=== PATIENT | male | born 1985 | race African-American/Black ===

== ENCOUNTER → 2016-07-25 | Outpatient (CLI) | payer MEDICAID, SELFPAY ==
[~2016-07-25] MED LIST: KEPP1TAB PO; KEPP1TAB2 PO; TOPI25TA2 OR
== END ==
LOC: M OUTALCOH 13:21
PROVIDERS: ATTEND Psychiatry & Neurology Psychiatry
DX: Z13.9 Encounter for screening, unspecified (principal); F10.20 Alcohol dependence, uncomplicated

== ENCOUNTER 2016-10-12 12:28 | Emergency (ER) | payer MEDICAID, OTHER ==
[~2016-10-12] VITALS: Ht 167.6 cm; Wt 68.2 kg
[~2016-10-12 12:28] MED LIST changes: -KEPP1TAB PO
[2016-10-12] MEDS ORDERED: OXAZEPAM 15 MG CAP PO ONE (13:00)
[2016-10-12 13:30] LABS: BASO # 0.1 K/mm3 (0.0-0.2); BASO % 0.6 % (0.0-1.0); EOS # 0.1 K/mm3 (0.0-0.50); EOS % 0.6 % (0.0-3.0); LARGE UNSTAINED CELL # 0.1 K/mm3 (0.0-0.4); LARGE UNSTAINED CELL % 1.3 % (0.0-4.0); LYMPH # 1.3 K/mm3 (1.5-6.5); LYMPH % 11.2 % (24.0-44.0); MEAN CORPUSCULAR HEMOGLOBIN 30.8 pg (27.0-33.0); MEAN CORPUSCULAR VOLUME 93.3 fl (80.0-96.0); MONO # 0.5 K/mm3 (0.0-0.8); MONO % 4.7 % (0.0-5.0); NEUTROPHILS # 8.6 K/mm3 (1.8-7.7); NEUTROPHILS % 81.7 % (36.0-66.0); PLATELET COUNT, AUTOMATED 245 k/mm3 (150-450); RED CELL DISTRIBUTION WIDTH 13.5 % (11.5-14.5); WHITE BLOOD COUNT 10.6 K/mm3 (4.0-10.0)
[2016-10-12] MEDS ORDERED: NS 1,000 ML IV ONE (13:30)
[2016-10-12 13:49] LABS: ALBUMIN 4.3 GM/DL (3.2-5.2); ALBUMIN/GLOBULIN RATIO 1.08 (1.00-1.93); ALKALINE PHOSPHATASE 87 U/L (45-117); ALT/SGPT 26 U/L (12-78); ANION GAP 17 MEQ/L (8-16); AST/SGOT 15 U/L (15-37); BILIRUBIN,DIRECT 0.1 MG/DL (0.0-0.2); BILIRUBIN,TOTAL 0.5 MG/DL (0.2-1.0); BLOOD UREA NITROGEN 13 MG/DL (7-18); CALCIUM LEVEL 9.7 MG/DL (8.5-10.1); CARBON DIOXIDE LEVEL 20 MEQ/L (21-32); CHLORIDE LEVEL 102 MEQ/L (98-107); CREATININE FOR GFR 1.61 MG/DL (0.70-1.30); GLOMERULAR FILTRATION RATE > 60.0 (>60); GLUCOSE, FASTING 81 MG/DL (70-105); POTASSIUM SERUM 4.4 MEQ/L (3.5-5.1); SODIUM LEVEL 139 MEQ/L (136-145); TOTAL PROTEIN 8.3 GM/DL (6.4-8.2)
[2016-10-12] MEDS ORDERED: levETIRAcetam INJection 500 MG in D5W MINI-BAG PLUS 100 ML IV ONE (14:15)
[2016-10-12 16:19] LABS: METHADONE URINE NEGATIVE (NEGATIVE)
[2016-10-12] MEDS ORDERED: KEPP1TAB PO (17:13)
[2016-10-12 18:19] VITALS: BP 128/92
--- NOTE | 2016-10-13 19:10 | ECGEPIP ---
Stationary ECG Study [facility] - ED Test Date: 2016-10-12 Pat Name: CORAL BALES Department: Room: - Gender: M Skin Care Specialist: rn : 1985 Requested By: Octavio Castillo Order Number: [id number] Reading MD: Reddy Brush Measurements Intervals [place] Rate: 147 P: WA: 0 QRS: 42 QRSD: 80 T: 17 QT: 264 QTc: 413 Interpretive Statements PROBABLE SINUS TACHYCARDIA ABNORMAL RHYTHM ECG NONSPECIFIC ST T WAVE CHANGES 01/02/16 - RATE INCREASED Electronically Signed On 10-13-2016 19:10:15 EDT by Reddy Brush
== END 2016-10-12 18:26 | disposition home or self-care (01) ==
LOC: M ED 12:28
DX: F10.20 Alcohol dependence, uncomplicated (principal); G40.909 Epilepsy, unspecified, not intractable, without status epilepticus; Z91.14 Patient's other noncompliance with medication regimen; R94.31 Abnormal electrocardiogram [ECG] [EKG]; Z87.820 Personal history of traumatic brain injury; F17.200 Nicotine dependence, unspecified, uncomplicated
CPT/HCPCS: 80048; 80076; 80307; 80320; 85025; 93000; 96374; 99284; J1953

== ENCOUNTER 2017-02-05 04:39 | Emergency (ER) | payer OTHER ==
[2017-02-05 07:39] LABS: BASO % 0.3 % (0.0-1.0); EOS % 0.1 % (0.0-3.0); IMMATURE GRANULOCYTE % 0.3 % (0-0); LYMPH # 1.1 10^3/uL (1.5-6.5); LYMPH % 7.3 % (24.0-44.0); MEAN CORPUSCULAR HEMOGLOBIN 30.2 pg (27.0-33.0); MEAN CORPUSCULAR HGB CONC 33.8 g/dl (32.0-36.5); MEAN CORPUSCULAR VOLUME 89.3 fl (80.0-96.0); MONO # 1.4 10^3/uL (0.0-0.8); MONO % 9.2 % (0.0-5.0); NEUTROPHILS # 12.4 10^3/uL (1.8-7.7); NEUTROPHILS % 82.8 % (36.0-66.0); PLATELET COUNT, AUTOMATED 242 10^3/uL (150-450); RED CELL DISTRIBUTION WIDTH 13.2 % (11.5-14.5)
[2017-02-05] MEDS: levETIRAcetam INJection 1,000 MG in D5W 100 ML IV (07:41)
[2017-02-05 08:09] LABS: ANION GAP 8 MEQ/L (8-16); BLOOD UREA NITROGEN 13 MG/DL (7-18); CALCIUM LEVEL 8.7 MG/DL (8.5-10.1); CARBON DIOXIDE LEVEL 27 MEQ/L (21-32); CHLORIDE LEVEL 107 MEQ/L (98-107); CREATININE FOR GFR 1.26 MG/DL (0.70-1.30); GLOMERULAR FILTRATION RATE > 60.0 (>60); GLUCOSE, FASTING 81 MG/DL (70-105); POTASSIUM SERUM 3.9 MEQ/L (3.5-5.1); SODIUM LEVEL 142 MEQ/L (136-145)
== END 2017-02-05 09:12 | disposition home or self-care (01) ==
LOC: M ED 04:39
DX: R56.9 Unspecified convulsions (principal); F17.210 Nicotine dependence, cigarettes, uncomplicated; Z91.14 Patient's other noncompliance with medication regimen; Z87.820 Personal history of traumatic brain injury; Z96.9 Presence of functional implant, unspecified
CPT/HCPCS: J1953

== ENCOUNTER 2017-06-14 11:06 | Emergency (ER) | payer OTHER ==
[2017-06-14] MEDS: NS 1,000 ML IV ×2 (11:27→13:41)
[2017-06-14 11:34] LABS: BASO % 0.4 % (0.0-1.0); EOS % 0.3 % (0.0-3.0); HEMATOCRIT 41.8 % (42.0-52.0); HEMOGLOBIN 13.8 g/dl (13.5-17.5); IMMATURE GRANULOCYTE % 0.4 % (0-3.0); LYMPH % 10.4 % (24.0-44.0); MEAN CORPUSCULAR HEMOGLOBIN 30.3 pg (27.0-33.0); MEAN CORPUSCULAR VOLUME 91.9 fl (80.0-96.0); MONO # 0.5 10^3/uL (0.0-0.8); MONO % 5.3 % (0.0-5.0); NEUTROPHILS # 7.8 10^3/uL (1.8-7.7); NEUTROPHILS % 83.2 % (36.0-66.0); PLATELET COUNT, AUTOMATED 220 10^3/uL (150-450); RED BLOOD COUNT 4.55 10^6/uL (4.30-6.10); RED CELL DISTRIBUTION WIDTH 14.6 % (11.5-14.5); WHITE BLOOD COUNT 9.4 10^3/uL (4.0-10.0)
[2017-06-14 11:59] LABS: ALBUMIN/GLOBULIN RATIO 0.95 (1.00-1.93); ALKALINE PHOSPHATASE 89 U/L (45-117); ALT/SGPT 30 U/L (12-78); ANION GAP 15 MEQ/L (8-16); AST/SGOT 34 U/L (7-37); BILIRUBIN,DIRECT 0.1 MG/DL (0.0-0.2); BILIRUBIN,TOTAL 0.6 MG/DL (0.2-1.0); BLOOD UREA NITROGEN 11 MG/DL (7-18); CARBON DIOXIDE LEVEL 19 MEQ/L (21-32); CHLORIDE LEVEL 103 MEQ/L (98-107); CPK CREATINE PHOSPHOKINASE 404 U/L (39-308); ETHYL ALCOHOL (ETHANOL) 0.012 % (0.000-0.010); GLOMERULAR FILTRATION RATE > 60.0 (>60); GLUCOSE, FASTING 75 MG/DL (70-100); POTASSIUM SERUM 4.5 MEQ/L (3.5-5.1); SALICYLATE LEVEL < 1.7 MG/DL (5.0-30.0); SODIUM LEVEL 137 MEQ/L (136-145); TOTAL PROTEIN 8.2 GM/DL (6.4-8.2); TROPONIN I < 0.02 NG/ML (< 0.10)
[2017-06-14 12:05] LABS: CK-MB VALUE MASS 1.6 NG/ML (<3.6); MB/CK RELATIVE INDEX 0.39 (< OR =4); THYROID STIMULATING HORMONE 0.374 uIU/ML (0.358-3.740)
[2017-06-14 12:06] LABS: ACETAMINOPHEN LEVEL < 2.0 UG/ML (10.0-30.0)
[2017-06-14 12:13] LABS: LACTIC ACID SEPSIS PROTOCOL 3.9 MMOL/L (0.4-2.0)
[2017-06-14] MEDS: levETIRAcetam INJection 1,000 MG in D5W 100 ML IV (12:25)
[2017-06-14 13:23] LABS: LACTIC ACID SEPSIS PROTOCOL 2.8 MMOL/L (0.4-2.0)
[2017-06-14 14:40] LABS: AMPHETAMINES LEVEL URINE NEGATIVE (NEGATIVE); BARBITURATES URINE NEGATIVE (NEGATIVE); BENZODIAZEPINES URINE NEGATIVE (NEGATIVE); CANNABINOIDS URINE NEGATIVE (NEGATIVE); COCAINE METABOLITE URINE NEGATIVE (NEGATIVE); METHADONE URINE NEGATIVE (NEGATIVE); OPIATES URINE NEGATIVE (NEGATIVE); PHENCYCLIDINE URINE NEGATIVE (NEGATIVE)
[2017-06-14 17:40] LABS: BEDSIDE GLUCOSE 82 MG/DL (70-105)
== END 2017-06-14 15:36 | disposition home or self-care (01) ==
LOC: M ED 11:06
DX: R56.9 Unspecified convulsions (principal); R00.0 Tachycardia, unspecified; Z87.828 Personal history of other (healed) physical injury and trauma; F17.200 Nicotine dependence, unspecified, uncomplicated; Z79.899 Other long term (current) drug therapy
CPT/HCPCS: J1953

== ENCOUNTER 2017-07-09 07:33 | Emergency (ER) | payer OTHER ==
[2017-07-09 08:00] LABS: VENOUS BASE EXCESS -14.9 (-2.0-2.0); VENOUS HCO3 12.2 MEQ/L (23.0-27.0); VENOUS O2 SATURATION 84.2 % (60.0-80.0); VENOUS PARTIAL PRESSURE CO2 32.7 mmHg (38.0-50.0); VENOUS PARTIAL PRESSURE O2 59.8 mmHg (30.0-50.0); VENOUS PH 7.188 UNITS (7.330-7.430); VENOUS STANDARD HCO3 13.2 MEQ/L; VENOUS TOTAL CO2 13.2 MEQ/L (24.0-28.0)
[2017-07-09 08:01] LABS: BASO # 0.1 10^3/uL (0.0-0.2); BASO % 0.5 % (0.0-1.0); EOS # 0.1 10^3/uL (0.0-0.50); EOS % 0.5 % (0.0-3.0); HEMATOCRIT 43.8 % (42.0-52.0); HEMOGLOBIN 14.2 g/dl (13.5-17.5); IMMATURE GRANULOCYTE % 0.8 % (0-3.0); LYMPH # 1.8 10^3/uL (1.5-4.5); LYMPH % 13.9 % (24.0-44.0); MEAN CORPUSCULAR HEMOGLOBIN 31.2 pg (27.0-33.0); MEAN CORPUSCULAR HGB CONC 32.4 g/dl (32.0-36.5); MEAN CORPUSCULAR VOLUME 96.3 fl (80.0-96.0); MONO # 1.2 10^3/uL (0.0-0.8); MONO % 9.4 % (0.0-5.0); NEUTROPHILS # 9.9 10^3/uL (1.8-7.7); NEUTROPHILS % 74.9 % (36.0-66.0); PLATELET COUNT, AUTOMATED 233 10^3/uL (150-450); RED BLOOD COUNT 4.55 10^6/uL (4.30-6.10); RED CELL DISTRIBUTION WIDTH 14.4 % (11.5-14.5); WHITE BLOOD COUNT 13.2 10^3/uL (4.0-10.0)
[2017-07-09] MEDS: NS 1,000 ML IV ×2 (08:04→10:04)
[2017-07-09 08:10] LABS: BEDSIDE GLUCOSE 91 MG/DL (70-105)
[2017-07-09 08:33] LABS: AMPHETAMINES LEVEL URINE NEGATIVE (NEGATIVE); BARBITURATES URINE NEGATIVE (NEGATIVE); BENZODIAZEPINES URINE NEGATIVE (NEGATIVE); CANNABINOIDS URINE NEGATIVE (NEGATIVE); COCAINE METABOLITE URINE NEGATIVE (NEGATIVE); METHADONE URINE NEGATIVE (NEGATIVE); OPIATES URINE NEGATIVE (NEGATIVE); PHENCYCLIDINE URINE NEGATIVE (NEGATIVE)
[2017-07-09 08:34] LABS: ALBUMIN/GLOBULIN RATIO 0.89 (1.00-1.93); ALKALINE PHOSPHATASE 101 U/L (45-117); ALT/SGPT 38 U/L (12-78); ANION GAP 23 MEQ/L (8-16); AST/SGOT 24 U/L (7-37); BILIRUBIN,DIRECT 0.3 MG/DL (0.0-0.2); BILIRUBIN,TOTAL 0.8 MG/DL (0.2-1.0); BLOOD UREA NITROGEN 12 MG/DL (7-18); CALCIUM LEVEL 8.9 MG/DL (8.5-10.1); CARBON DIOXIDE LEVEL 13 MEQ/L (21-32); CHLORIDE LEVEL 96 MEQ/L (98-107); CREATININE FOR GFR 1.57 MG/DL (0.70-1.30); GLOMERULAR FILTRATION RATE > 60.0 (>60); GLUCOSE, FASTING 90 MG/DL (70-100); POTASSIUM SERUM 4.4 MEQ/L (3.5-5.1); SALICYLATE LEVEL < 1.7 MG/DL (5.0-30.0); SODIUM LEVEL 132 MEQ/L (136-145); THYROID STIMULATING HORMONE 0.309 uIU/ML (0.358-3.740); TOTAL PROTEIN 8.5 GM/DL (6.4-8.2)
[2017-07-09 08:35] LABS: ACETAMINOPHEN LEVEL < 2.0 UG/ML (10.0-30.0)
[2017-07-09 11:39] LABS: VENOUS BASE EXCESS -1.4 (-2.0-2.0); VENOUS HCO3 25.6 MEQ/L (23.0-27.0); VENOUS O2 SATURATION 67.6 % (60.0-80.0); VENOUS PARTIAL PRESSURE CO2 52.7 mmHg (38.0-50.0); VENOUS PARTIAL PRESSURE O2 37.9 mmHg (30.0-50.0); VENOUS PH 7.305 UNITS (7.330-7.430); VENOUS STANDARD HCO3 22.6 MEQ/L; VENOUS TOTAL CO2 27.3 MEQ/L (24.0-28.0)
[2017-07-09] MEDS: DIVALPROEX 500MG *ER* TAB PO (12:41)
== END 2017-07-09 12:43 | disposition home or self-care (01) ==
LOC: M ED 07:33
DX: R56.9 Unspecified convulsions (principal); Z91.19 Patient's noncompliance with other medical treatment and regimen; R00.0 Tachycardia, unspecified; R94.31 Abnormal electrocardiogram [ECG] [EKG]; Z87.820 Personal history of traumatic brain injury; Z79.899 Other long term (current) drug therapy
CPT/HCPCS: 70450

== ENCOUNTER 2018-02-24 11:17 | Emergency (ER) | payer MEDICAID, OTHER, SELFPAY ==
[~2018-02-24] VITALS: Ht 167.6 cm; Wt 71.8 kg
[~2018-02-24 11:17] MED LIST changes: +DEPA500T2 PO; +KEPP1TAB PO
[2018-02-24 11:47] LABS: BASO % 0.3 % (0.0-1.0); EOS % 0.1 % (0.0-3.0); HEMATOCRIT 43.3 % (42.0-52.0); HEMOGLOBIN 14.3 g/dl (13.5-17.5); LYMPH # 0.6 10^3/uL (1.5-4.5); LYMPH % 5.3 % (24.0-44.0); MEAN CORPUSCULAR HEMOGLOBIN 32.4 pg (27.0-33.0); MONO # 1.1 10^3/uL (0.0-0.8); MONO % 9.6 % (0.0-5.0); NEUTROPHILS # 9.5 10^3/uL (1.8-7.7); NEUTROPHILS % 84.3 % (36.0-66.0); PLATELET COUNT, AUTOMATED 189 10^3/uL (150-450); RED BLOOD COUNT 4.42 10^6/uL (4.30-6.10); WHITE BLOOD COUNT 11.2 10^3/uL (4.0-10.0)
--- NOTE | 2018-02-24 12:11 | REP ---
CT Head without contrast HISTORY: Trauma COMPARISON: 07/09/2017 An area of decreased attenuation is present in the right frontal lobe. There is dilatation of the overlying cortical sulci and anterior horn of the right lateral ventricle. This represents encephalomalacia. There is no intraparenchymal hemorrhage, acute infarct, mass or midline shift. There is no hydrocephalus or extracerebral collection. There is no fracture. The visualized sinuses are clear. IMPRESSION: Right frontal lobe encephalomalacia. Electronically Signed by Matt Grande MD 02/24/2018 12:03 P
[2018-02-24 12:33] LABS: ACETAMINOPHEN LEVEL < 2.0 UG/ML (10.0-30.0); ALBUMIN 4.3 GM/DL (3.2-5.2); ALT/SGPT 129 U/L (12-78); BILIRUBIN,DIRECT 0.3 MG/DL (0.0-0.2); BLOOD UREA NITROGEN 8 MG/DL (7-18); CALCIUM LEVEL 9.1 MG/DL (8.5-10.1); CARBON DIOXIDE LEVEL 11 MEQ/L (21-32); CHLORIDE LEVEL 100 MEQ/L (98-107); CPK CREATINE PHOSPHOKINASE 348 U/L (39-308); CREATININE FOR GFR 1.52 MG/DL (0.70-1.30); GLOMERULAR FILTRATION RATE > 60.0 (>60); GLUCOSE, FASTING 154 MG/DL (70-100); POTASSIUM SERUM 4.6 MEQ/L (3.5-5.1); SALICYLATE LEVEL < 1.7 MG/DL (5.0-30.0); SODIUM LEVEL 138 MEQ/L (136-145); THYROID STIMULATING HORMONE 0.532 uIU/ML (0.358-3.740); TOTAL PROTEIN 8.7 GM/DL (6.4-8.2); VALPROIC ACID (DEPAKOTE) 6.1 UG/ML (50.0-100.0)
[2018-02-24 12:34] LABS: ETHYL ALCOHOL (ETHANOL) < 0.003 % (0.000-0.010)
[2018-02-24] MEDS ORDERED: ADACEL/BOOSTRIX VACCINE (DIPHTH/PERTUSS/ACELL/TETANUS)0.5ML SYR (90715) IM ONE (13:00)
[2018-02-24] MEDS ORDERED: VALPROATE SOD INJ 1,000 MG in D5W 50 ML IV ONE (13:15)
[2018-02-24 14:47] VITALS: BP 142/82
[2018-02-24] MEDS ORDERED: KEPP1TAB PO (14:52)
[2018-02-24] MEDS ORDERED: DEPA500T2 PO (14:52)
--- NOTE | 2018-02-25 19:27 | ECGEPIP ---
Stationary ECG Study [facility] - ED Test Date: 2018-02-24 Pat Name: CORAL BALES Department: Room: - Gender: M Benefits Specialist Recruiter: TC : 1985 Requested By: Kat Mullins Order Number: [id number] Reading MD: Reddy Brush Measurements Intervals [place] Rate: 126 P: 55 VA: 150 QRS: 47 QRSD: 78 T: 34 QT: 293 QTc: 424 Interpretive Statements SINUS TACHYCARDIA ABNORMAL RHYTHM ECG NONSPECIFIC ST T WAVE CHANGES 07/08/[address] T WAVE CHANGES Electronically Signed On 02-25-2018 19:26:58 EST by Reddy Brush
== END 2018-02-24 15:05 | disposition home or self-care (01) ==
LOC: M ED 11:17
DX: G40.309 Generalized idiopathic epilepsy and epileptic syndromes, not intractable, without status epilepticus (principal)
CPT/HCPCS: 36415; 70450; 80048; 80076; 80164; 80180; 82550; 84443; 85025; 90715; 93005; 93041; 94760; 96365; 96366; 99285; G0480

== ENCOUNTER → 2018-03-21 | Outpatient (REF) | payer MEDICAID ==
[2018-03-21 16:55] LABS: BASO % 0.4 % (0.0-1.0); EOS # 0.1 10^3/uL (0.0-0.50); EOS % 0.9 % (0.0-3.0); HEMATOCRIT 41.1 % (42.0-52.0); HEMOGLOBIN 14.1 g/dl (13.5-17.5); LYMPH # 1.5 10^3/uL (1.5-4.5); LYMPH % 15.8 % (24.0-44.0); MEAN CORPUSCULAR HEMOGLOBIN 32.9 pg (27.0-33.0); MEAN CORPUSCULAR HGB CONC 34.3 g/dl (32.0-36.5); MONO % 10.2 % (0.0-5.0); NEUTROPHILS # 6.7 10^3/uL (1.8-7.7); NEUTROPHILS % 72.4 % (36.0-66.0); PLATELET COUNT, AUTOMATED 167 10^3/uL (150-450); RED BLOOD COUNT 4.28 10^6/uL (4.30-6.10); WHITE BLOOD COUNT 9.3 10^3/uL (4.0-10.0)
[2018-03-21 17:20] LABS: ALBUMIN 4.7 GM/DL (3.2-5.2); ALT/SGPT 80 U/L (12-78); BLOOD UREA NITROGEN 10 MG/DL (7-18); CALCIUM LEVEL 9.1 MG/DL (8.5-10.1); CARBON DIOXIDE LEVEL 24 MEQ/L (21-32); CHLORIDE LEVEL 98 MEQ/L (98-107); CREATININE FOR GFR 1.01 MG/DL (0.70-1.30); GLOMERULAR FILTRATION RATE > 60.0 (>60); GLUCOSE, FASTING 79 MG/DL (70-100); POTASSIUM SERUM 4.5 MEQ/L (3.5-5.1); SODIUM LEVEL 135 MEQ/L (136-145); TOTAL PROTEIN 8.7 GM/DL (6.4-8.2)
== END ==
LOC: M LAB REF 16:12
PROVIDERS: ATTEND Family Medicine Addiction Medicine
DX: R74.8 Abnormal levels of other serum enzymes (principal)

== ENCOUNTER → 2018-04-02 | Outpatient (CLI) | payer OTHER ==
--- NOTE | 2018-04-03 08:28 | REP ---
MR BRAIN WITHOUT CONTRAST: HISTORY: Seizure. COMPARISON: MR 02/01/[address] 02/24/2018 An area of increased signal intensity on T2 weighted images is present in the right frontal lobe. This is surrounded by a ring of decreased signal intensity hemosiderin and increased signal intensity gliosis. There is dilatation of the overlying cortical sulci and anterior horn of the right lateral ventricle. There is no acute intraparenchymal hemorrhage, infarct, mass or midline shift. There is no hydrocephalus or extracerebral collection. The sinuses are clear. IMPRESSION: Right frontal lobe encephalomalacia . Electronically Signed by Matt Grande MD 04/03/2018 08:47 A
== END ==
LOC: M RAD 16:48
PROVIDERS: ATTEND Nurse Practitioner Family
DX: G40.89 Other seizures (principal); R42 Dizziness and giddiness; G93.89 Other specified disorders of brain

== ENCOUNTER → 2018-05-23 | Outpatient (REF) | payer OTHER ==
[2018-05-23 13:23] LABS: ALBUMIN 4.4 GM/DL (3.2-5.2); ALT/SGPT 111 U/L (12-78); BILIRUBIN,TOTAL 0.6 MG/DL (0.2-1.0); BLOOD UREA NITROGEN 5 MG/DL (7-18); CALCIUM LEVEL 8.9 MG/DL (8.5-10.1); CARBON DIOXIDE LEVEL 28 MEQ/L (21-32); CHLORIDE LEVEL 102 MEQ/L (98-107); CREATININE FOR GFR 0.95 MG/DL (0.70-1.30); GLOMERULAR FILTRATION RATE > 60.0 (>60); GLUCOSE, FASTING 86 MG/DL (70-100); POTASSIUM SERUM 3.7 MEQ/L (3.5-5.1); SODIUM LEVEL 140 MEQ/L (136-145); TOTAL PROTEIN 8.2 GM/DL (6.4-8.2)
== END ==
LOC: M LAB REF 12:04
PROVIDERS: ATTEND Family Medicine Addiction Medicine
DX: R74.8 Abnormal levels of other serum enzymes (principal)

== ENCOUNTER → 2018-06-18 | Outpatient (CLI) | payer OTHER ==
--- NOTE | 2018-06-18 07:46 | REP ---
Clinical: Elevated liver function tests. Technique: Real time carter scale ultrasound examination using curved array transducer. Findings: Liver is increased echogenicity with decreased through transmission suggesting fatty infiltration and/or hepatocellular disease. No hepatomegaly or focal hepatic lesion identified. Pancreas is normal in appearance and echogenicity. Gallbladder demonstrates a single mobile stone without wall thickening or pericholecystic fluid. No biliary ductal dilatation is appreciated and the common bile duct measures 4.8 mm diameter. The right kidney is normal in reniform shape without hydronephrosis and measures 11.1 x 6.0 x 4.0 cm. Abdominal aorta is normal. No ascites. Impression: 1. Hepatosteatosis/hepatocellular disease. No focal hepatic lesion identified. 2. Cholelithiasis. Electronically Signed by Bari Beltran MD 06/18/2018 07:37 A
== END ==
LOC: M RAD 06:59
PROVIDERS: ATTEND Family Medicine Addiction Medicine
DX: K76.0 Fatty (change of) liver, not elsewhere classified (principal); K80.20 Calculus of gallbladder without cholecystitis without obstruction

== ENCOUNTER → 2018-07-03 | Outpatient (REF) | payer OTHER, MEDICAID ==
[2018-07-03 14:00] LABS: BASO # 0.1 10^3/uL (0.0-0.2); EOS # 0.4 10^3/uL (0.0-0.50); EOS % 4.3 % (0.0-3.0); HEMOGLOBIN 13.9 g/dl (13.5-17.5); LYMPH # 1.7 10^3/uL (1.5-4.5); MEAN CORPUSCULAR HEMOGLOBIN 31.4 pg (27.0-33.0); MEAN CORPUSCULAR HGB CONC 32.3 g/dl (32.0-36.5); MEAN CORPUSCULAR VOLUME 97.1 fl (80.0-96.0); MONO # 1.3 10^3/uL (0.0-0.8); MONO % 14.2 % (0.0-5.0); NEUTROPHILS # 5.4 10^3/uL (1.8-7.7); PLATELET COUNT, AUTOMATED 253 10^3/uL (150-450); RED BLOOD COUNT 4.43 10^6/uL (4.30-6.10); WHITE BLOOD COUNT 8.8 10^3/uL (4.0-10.0)
[2018-07-03 14:12] LABS: ALBUMIN 3.9 GM/DL (3.2-5.2); ALT/SGPT 215 U/L (12-78); BILIRUBIN,TOTAL 0.7 MG/DL (0.2-1.0); BLOOD UREA NITROGEN 9 MG/DL (7-18); CARBON DIOXIDE LEVEL 25 MEQ/L (21-32); CHLORIDE LEVEL 101 MEQ/L (98-107); CREATININE FOR GFR 0.93 MG/DL (0.70-1.30); FERRITIN 470 NG/ML (26-388); GLOMERULAR FILTRATION RATE > 60.0 (>60); GLUCOSE, FASTING 54 MG/DL (70-100); IRON (FE) 72 UG/DL (65-175); SODIUM LEVEL 138 MEQ/L (136-145); TOTAL PROTEIN 8.2 GM/DL (6.4-8.2)
[2018-07-04 10:19] LABS: HEPATITIS B SURFACE ANTIBODY POSITIVE (POSITIVE)
[2018-07-04 10:30] LABS: HEPATITIS B SURFACE ANTIGEN NEGATIVE (NEGATIVE)
[2018-07-04 10:59] LABS: HEPATITIS C VIRUS ABY INDEX 0.1 INDEX (<0.8)
== END ==
LOC: M LAB REF 13:36
PROVIDERS: ATTEND Family Medicine Addiction Medicine
DX: R74.8 Abnormal levels of other serum enzymes (principal)

== ENCOUNTER 2018-08-22 13:34 | Emergency (ER) | payer MEDICAID, OTHER ==
[~2018-08-22] VITALS: Ht 167.6 cm; Wt 67.2 kg
[2018-08-22 14:12] LABS: HEMATOCRIT 39.5 % (42.0-52.0); HEMOGLOBIN 13.3 g/dl (13.5-17.5); MEAN CORPUSCULAR HEMOGLOBIN 33.1 pg (27.0-33.0); MEAN CORPUSCULAR HGB CONC 33.7 g/dl (32.0-36.5); MEAN CORPUSCULAR VOLUME 98.3 fl (80.0-96.0); PLATELET COUNT, AUTOMATED 175 10^3/uL (150-450); RED BLOOD COUNT 4.02 10^6/uL (4.30-6.10); WHITE BLOOD COUNT 7.6 10^3/uL (4.0-10.0)
[2018-08-22] MEDS ORDERED: levETIRAcetam INJection 1,000 MG in D5W 100 ML IV ONE (14:30)
[2018-08-22 14:42] LABS: BLOOD UREA NITROGEN 8 MG/DL (7-18); CALCIUM LEVEL 8.9 MG/DL (8.5-10.1); CARBON DIOXIDE LEVEL 13 MEQ/L (21-32); CHLORIDE LEVEL 99 MEQ/L (98-107); CREATININE FOR GFR 1.27 MG/DL (0.70-1.30); GLOMERULAR FILTRATION RATE > 60.0 (>60); GLUCOSE, FASTING 80 MG/DL (70-100); MAGNESIUM LEVEL 2.1 MG/DL (1.8-2.4); POTASSIUM SERUM 3.8 MEQ/L (3.5-5.1); SODIUM LEVEL 137 MEQ/L (136-145); VALPROIC ACID (DEPAKOTE) < 3.0 UG/ML (50.0-100.0)
[2018-08-22] MEDS ORDERED: NS 1,000 ML IV ONE (15:00)
[2018-08-22 18:04] VITALS: BP 117/55
== END 2018-08-22 18:06 | disposition home or self-care (01) ==
LOC: EDSEX 13:34 → EDBD 13:34 → M ED 13:34 → EDUNIT# 13:34 → M ED 18:06
DX: R56.9 Unspecified convulsions (principal); Z91.19 Patient's noncompliance with other medical treatment and regimen; Z87.820 Personal history of traumatic brain injury
CPT/HCPCS: 80047; 80048; 80164; 80180; 83735; 85027; 96361; 96365; 99284; J1953

== ENCOUNTER → 2018-11-19 | Outpatient (CLI) | payer OTHER ==
[2018-11-19 14:18] LABS: PARTIAL THROMBOPLASTIN TIME 30.7 SECONDS (25.0-38.4); PROTHROMBIN TIME 12.9 SECONDS (11.8-14.0)
[2018-11-19 14:36] LABS: ALBUMIN 4.1 GM/DL (3.2-5.2); BILIRUBIN,DIRECT 0.6 MG/DL (0.0-0.2); BILIRUBIN,TOTAL 2.4 MG/DL (0.2-1.0); PERCENT SATURATION 56.9 % (19.7-50.0); TOTAL PROTEIN 8.1 GM/DL (6.4-8.2)
[2018-11-21 08:42] LABS: ALPHA 1 ANTITRYPSIN 134 mg/dL (90-200); ANTI-MITOCHONDRIAL ANTIBODY <20.0 Units (0.0-20.0); ANTI-SMOOTH MUSCLE ANTIBODY 10 Units (0-19); ANTINUCLEAR ANTIBODIES DIRECT Negative (Negative); CERULOPLASMIN 28.7 mg/dL (16.0-31.0); IGASUB2 176.3 mg/dL (73.2-301.2); IGASUB3 75.7 mg/dL (13.4-97.9); IgA SERUM (part of Subclasses) 257 mg/dL (90-386); LIVER-KIDNEY MICROSOMAL ABY <20.1 Units (0.0-20.0); TISSUE TRANSGLUTAMINASE IgA <2 U/mL (0-3)
== END ==
LOC: M LAB 12:23
PROVIDERS: ATTEND Internal Medicine Gastroenterology
DX: R94.5 Abnormal results of liver function studies (principal)

== ENCOUNTER → 2018-12-01 | Outpatient (REF) | payer OTHER ==
[2018-12-01 13:58] LABS: CLOSTRIDIUM DIFFICILE PCR NEGATIVE (NEGATIVE)
[2018-12-08 08:27] LABS: CALPROTECTIN STOOL <16 ug/g (0-120); FATS NEUTRAL Normal (.); FATS TOTAL Normal (.); H PYLORI STOOL ANTIGEN Negative (Negative); PANCREATIC ELASTASE STOOL >500 (>200)
== END ==
LOC: M LAB REF 11:14
PROVIDERS: ATTEND Internal Medicine Gastroenterology
DX: R94.5 Abnormal results of liver function studies (principal)

== ENCOUNTER → 2019-07-20 | Outpatient (REF) | payer OTHER, SELFPAY ==
[2019-07-20 13:29] LABS: BASO # 0.1 10^3/uL (0.0-0.2); EOS # 0.2 10^3/uL (0.0-0.5); HEMATOCRIT 46.4 % (42.0-52.0); LYMPH # 1.3 10^3/uL (1.5-5.0); LYMPH % 22.1 % (24.0-44.0); MEAN CORPUSCULAR HGB CONC 32.3 g/dl (32.0-36.5); MEAN CORPUSCULAR VOLUME 98.9 fl (80.0-96.0); MONO # 0.7 10^3/uL (0.0-0.8); MONO % 12.1 % (0.0-5.0); NEUTROPHILS # 3.7 10^3/uL (1.5-8.5); NEUTROPHILS % 61.5 % (36.0-66.0); PLATELET COUNT, AUTOMATED 156 10^3/uL (150-450); RED BLOOD COUNT 4.69 10^6/uL (4.30-6.10); WHITE BLOOD COUNT 5.9 10^3/uL (4.0-10.0)
[2019-07-20 13:39] LABS: ALT/SGPT 152 U/L (12-78); BILIRUBIN,TOTAL 0.7 MG/DL (0.2-1.0); BLOOD UREA NITROGEN 10 MG/DL (7-18); CALCIUM LEVEL 9.4 MG/DL (8.5-10.1); CARBON DIOXIDE LEVEL 30 MEQ/L (21-32); CHLORIDE LEVEL 103 MEQ/L (98-107); CHOLESTEROL LEVEL 249 MG/DL (<200); CHOLESTEROL RISK RATIO 2.349 (<5); CREATININE FOR GFR 0.99 MG/DL (0.70-1.30); GLOMERULAR FILTRATION RATE > 60.0 (>60); GLUCOSE, FASTING 65 MG/DL (70-100); HDL CHOLESTEROL 106 MG/DL (>40); LDL CHOLESTEROL 120 MG/DL (<100); NON-HDL-C 143 MG/DL; POTASSIUM SERUM 4.4 MEQ/L (3.5-5.1); SODIUM LEVEL 139 MEQ/L (136-145); THYROID STIMULATING HORMONE 0.526 uIU/ML (0.358-3.740); TOTAL PROTEIN 8.4 GM/DL (6.4-8.2); TRIGLYCERIDES LEVEL 117 MG/DL (<150)
[2019-07-20 13:40] LABS: TOTAL 25(OH) VITAMIN D 19.4 NG/ML (30.0-100.0)
[2019-07-20 14:13] LABS: HEMOGLOBIN A1c 5.6 %
== END ==
LOC: M LAB REF 11:56
PROVIDERS: ATTEND Family Medicine
DX: R56.9 Unspecified convulsions (principal)

== ENCOUNTER 2020-03-08 11:33 | Emergency (ER) | payer OTHER, SELFPAY ==
[~2020-03-08] VITALS: Ht 167.6 cm; Wt 68.2 kg
[2020-03-08] MEDS ORDERED: NS 1,000 ML IV ONE (11:45)
[2020-03-08] MEDS ORDERED: KEPP1TAB2 PO (11:46)
[2020-03-08] MEDS ORDERED: levETIRAcetam 250MG TABLET (KEPPRA) PO ONE (12:00)
[2020-03-08 13:56] VITALS: BP 130/83
[2020-03-08 14:42] LABS: AMPHETAMINES LEVEL URINE NEGATIVE (NEGATIVE); BARBITURATES URINE NEGATIVE (NEGATIVE); BENZODIAZEPINES URINE NEGATIVE (NEGATIVE); CANNABINOIDS URINE NEGATIVE (NEGATIVE); COCAINE METABOLITE URINE NEGATIVE (NEGATIVE); METHADONE URINE NEGATIVE (NEGATIVE); OPIATES URINE NEGATIVE (NEGATIVE); PHENCYCLIDINE URINE NEGATIVE (NEGATIVE)
== END 2020-03-08 14:06 | disposition home or self-care (01) ==
LOC: EDBD 11:33 → M ED 11:33
DX: G40.919 Epilepsy, unspecified, intractable, without status epilepticus (principal); Z79.899 Other long term (current) drug therapy

== ENCOUNTER 2020-10-17 12:02 | Emergency (ER) | payer OTHER ==
[~2020-10-17] VITALS: Ht 167.6 cm; Wt 62.3 kg
[2020-10-17 12:05] VITALS: BP 123/71
== END 2020-10-17 12:18 | disposition left against medical advice (07) ==
LOC: M ED 12:02
DX: Z53.21 Procedure and treatment not carried out due to patient leaving prior to being seen by health care provider (principal)

== ENCOUNTER 2020-11-04 08:45 | Emergency (ER) | payer OTHER ==
[~2020-11-04] VITALS: Ht 162.6 cm; Wt 61.5 kg
[2020-11-04 08:45] VITALS: BP 137/97
== END 2020-11-04 09:30 | disposition left against medical advice (07) ==
LOC: M ED 08:45
DX: Z53.21 Procedure and treatment not carried out due to patient leaving prior to being seen by health care provider (principal)

== ENCOUNTER 2020-11-28 20:08 | Emergency (ER) | payer OTHER ==
[~2020-11-28] VITALS: Ht 165.1 cm; Wt 61.2 kg
[2020-11-28 20:08] VITALS: BP 133/98
--- OUTSIDE RECORDS SUMMARY | 2020-11-28 20:14 | CCD ---
Author Author [facility] Organization [facility] Address Unknown Phone Unavailable Support Name Relationship Address Phone Sharon Bales Next Of Kin Unknown Unavailable Sari Sanz Next Of Kin [address] [place] [address] Meludia Next Of Kin [address] [place] [id number] [place] [address] JRC* [place] [address] UE Next Of Kin Unknown Unavailable UNEMPLOYED Next Of Kin Unknown UN Next Of Kin Unknown Unavailable MAYT SUPERCENTER Next Of Kin [address] [place] [address] SHARON BALES Next Of Kin [address] [place] [address] ATUL BALES Next Of Kin [address] [place] [address] Re-disclosure Warning The records that you are about to access may contain information from federally-assisted alcohol or drug abuse programs. If such information is present, then the following federally mandated warning applies: This information has been disclosed to you from records protected by federal confidentiality rules (42 CFR part 2). The federal rules prohibit you from making any further disclosure of this information unless further disclosure is expressly permitted by the written consent of the person to whom it pertains or as otherwise permitted by 42 CFR part 2. A general authorization for the release of medical or other information is NOT sufficient for this purpose. The Federal rules restrict any use of the information to criminally investigate or prosecute any alcohol or drug abuse patient.The records that you are about to access may contain highly sensitive health information, the redisclosure of which is protected by Article 27-F of the [facility] Public Health law. If you continue you may have access to information: Regarding HIV / AIDS; Provided by facilities licensed or operated by the [facility] Office of Mental Health; or Provided by the [facility] Office for People With Developmental Disabilities. If such information is present, then the following [facility] mandated warning applies: This information has been disclosed to you from confidential records which are protected by state law. State law prohibits you from making any further disclosure of this information without the specific written consent of the person to whom it pertains, or as otherwise permitted by law. Any unauthorized further disclosure in violation of state law may result in a fine or detention sentence or both. A general authorization for the release of medical or other information is NOT sufficient authorization for further disc losure. Family History Family Member Name Family Member Gender Family Member Status Date o f Status Description Data Source(s) Unknown Unknown Problem [facility] ([facility]) Immunizations Vaccine Date Status Description Data Source(s) COVID-19 VACCINE Moderna 06/17/2020 12:00:00 AM EDT completed QuickMobile Vaccine Series Complete: YESThis Data wa s Submitted to [facility] Via QuickMobile. COVID-19 VACCINE Moderna 05/20/2020 12:00:00 AM EDT completed RealScoutSIRollad Vaccine Series Complete: NOThis Data was Submitted to [facility] Via QuickMobile. Medications Medication Brand Name Start Date Product Form Dose Route Admi nistrative Instructions Pharmacy Instructions Status Indications Reaction Description Data Source(s) 750 mg 07/18/2019 12:00:00 AM EDT tablet 60 TAKE ONE TABLET BY MOUTH TWICE A DAY TAKE ONE TABLET BY MOUTH TWICE A DAY SOLD: 07/07/2020 [facility] 750 mg 07/18/2019 12:00:00 AM EDT tablet 60 TAKE ONE TABLET BY MOUTH TWICE A DAY TAKE ONE TABLET BY MOUTH TWICE A DAY SOLD: 03/16/2020 [facility] Insurance Providers Payer name Policy type / Coverage type Policy ID Covered constitution party ID Covered constitution party's relationship to matias Policy Matias Plan Information Medicaid S [id number] S [id number] [facility] P [id number] S [id number] Medicaid S [id number] S [id number] [facility] [id number] SP [id number] Health system Community Plan P [id number] S [id number] Medicaid S [id number] S [id number] [facility] P [id number] S [id number] [facility] Plan P [id number] S [id number] MEDICAID [id number] SP [id number] [facility](MCAID) O [id number] S [id number] [facility] P [id number] S [id number] Medicaid S [id number] S [id number] MEDICAID [id number] SP [id number] SELF PAY ONLY [id number] SP [id number] SELF PAY UNAVAILABLE UNAVAILA BLE O UNAVAILABLE UNAVAILA BLE EXCELLUS BCBS B [id number] S [id number] NATALIIA CMS [id number] SP [id number] NATALIIA [id number] SP [id number] [place] 200/700 [id number] FA2 [id number] BCBS [facility] 302/307 [id number] FA2 [id number] [facility] P [id number] S [id number] NATALIIA [id number] SP [id number] [facility] [id number] SP [id number] SELF PAY ONLY UNAVAILABLE SP UNAV AILABLE SELF PAY ONLY [id number] SP [id number] Self Pay P [id number] S [id number] Self Pay P UNAVAILABLE S UNAVAILA BLE Medicaid P [id number] S [id number] Health system Community Plan P [id number] S [id number] Problems, Conditions, and Diagnoses No Information Surgeries/Procedures No Information Results No Information Social History No Information
--- OUTSIDE RECORDS SUMMARY | 2020-11-28 20:51 | CCD ---
Author Author [facility] Organization [facility] Address Unknown Phone Unavailable Support Name Relationship Address Phone Sharon Bales Next Of Kin Unknown Unavailable Sari Sanz Next Of Kin [address] [place] [address] [employer] Next Of Kin [address] [place] [id number] [place] [address] JRC* [place] [address] UE Next Of Kin Unknown Unavailable UNEMPLOYED Next Of Kin Unknown UN Next Of Kin Unknown Unavailable MAYT SUPERCENTER Next Of Kin [address] [place] [address] SHARON BALES Next Of Kin [address] [place] [address] ATUL BALES Next Of Kin [address] [place] [address] Re-disclosure Warning The records that you are [...] is protected by Article 27-F of the [facility] Public Health law. If you continue you may have access to information: Regarding HIV / AIDS; Provided by facilities licensed or operated by the [facility] Office of Mental Health; or Provided by the [facility] Office for People With Developmental Disabilities. If such information is present, then the following [facility] mandated warning applies: This information has [...] law may result in a fine or skilled nursing sentence or both. A general authorization for [...] VACCINE Moderna 06/17/2020 12:00:00 AM EDT completed Se[employer]ore Vaccine Series Complete: YESThis Data wa s Submitted to [facility] Via Seclore. COVID-19 VACCINE Moderna 05/20/2020 12:00:00 AM EDT completed MarkTheGlobeSIMinube Vaccine Series Complete: NOThis Data was Submitted to [facility] Via Seclore. Medications Medication Brand Name Start Date Product [...] type / Coverage type Policy ID Covered republican ID Covered republican's relationship to matias Policy Matias Plan Information Medicaid S [id number] S [id number] [facility] Care [facility] P [id number] S [id number] Medicaid S [id number] S [id number] [facility] [id number] SP [id number] [facility] Community Plan P [id number] S [id number] Medicaid S [id number] S [id number] [facility] P [id number] S [id number] [facility] Plan P [id number] S [id number] MEDICAID [id number] SP [id number] [facility](MCAID) O [id number] S [id number] [facility] P [id number] S [id number] Medicaid S [id number] S [id number] MEDICAID [id number] SP [id number] SELF PAY ONLY [id number] SP [id number] SELF PAY UNAVAILABLE UNAVAILA BLE O UNAVAILABLE UNAVAILA BLE EXCELLUS BCBS B [id number] S [id number] NATALIIA CMS [id number] SP [id number] NATALIIA [id number] SP [id number] [place] 200/700 [id number] FA2 [id number] BCBS [facility] 302/307 [id number] FA2 [id number] [facility] P [id number] S [id number] NATALIIA [id number] SP [id number] [facility] [id number] SP [id number] SELF PAY ONLY UNAVAILABLE SP UNAV AILABLE SELF PAY ONLY [id number] SP [id number] Self Pay P [id number] S [id number] Self Pay P UNAVAILABLE S UNAVAILA BLE Medicaid P [id number] S [id number] [facility] Community Plan P [id number] S [id number] Problems, Conditions, and Diagnoses No Information Surgeries/Procedures No Information Results No Information Social History No Information
[2020-11-29] MEDS ORDERED: KEPP1TAB2 PO (06:14)
== END 2020-11-28 20:20 | disposition left against medical advice (07) ==
LOC: M ED 20:08
DX: Z53.21 Procedure and treatment not carried out due to patient leaving prior to being seen by health care provider (principal)

== ENCOUNTER 2020-11-28 20:53 | Inpatient (IN) | payer MEDICAID, OTHER ==
[~2020-11-28] VITALS: Ht 162.6 cm; Wt 61.2 kg
--- OUTSIDE RECORDS SUMMARY | 2020-11-28 20:57 | CCD ---
Author Author [facility] Organization [facility] Address Unknown Phone Unavailable Support Name Relationship Address Phone Sharon Bales Next Of Kin Unknown Unavailable Sari Sanz Next Of Kin [address] [place] [address] [employer] Next Of Kin [address] [place] [id number] [place] [address] JRC* [place] [address] UE Next Of Kin Unknown Unavailable UNEMPLOYED Next Of Kin Unknown UN Next Of Kin Unknown Unavailable MAYT SUPERCENTER Next Of Kin [address] [place] [address] SHARON BALES Next Of Kin [address] [place] [address] ATUL BALES Next Of Kin [address] [place] [address] Re-disclosure Warning The records that you are [...] is protected by Article 27-F of the [facility] Public Health law. If you continue you may have access to information: Regarding HIV / AIDS; Provided by facilities licensed or operated by the [facility] Office of Mental Health; or Provided by the [facility] Office for People With Developmental Disabilities. If such information is present, then the following [facility] mandated warning applies: This information has been [...] law may result in a fine or custodial sentence or both. A general authorization for [...] VACCINE Moderna 06/17/2020 12:00:00 AM EDT completed TriPlay Vaccine Series Complete: YESThis Data wa s Submitted to [facility] Via TriPlay. COVID-19 VACCINE Moderna 05/20/2020 12:00:00 AM EDT completed Deep-[employer] Vaccine Series Complete: NOThis Data was Submitted to [facility] Via TriPlay. Medications Medication Brand Name Start Date Product [...] type / Coverage type Policy ID Covered alliance party ID Covered alliance party's relationship to matias Policy Matias Plan Information Medicaid S [id number] S [id number] [facility] Care [facility] P [id number] S [id number] Medicaid S [id number] S [id number] REPLACED BY [facility] [id number] SP [id number] [facility] Community Plan P [id number] S [id number] Medicaid S [id number] S [id number] [facility] P [id number] S [id number] [facility] Plan P [id number] S [id number] MEDICAID [id number] SP [id number] [facility](MCAID) O [id number] S [id number] [facility] P [id number] S [id number] Medicaid S [id number] S [id number] MEDICAID [id number] SP [id number] SELF PAY ONLY [id number] SP [id number] SELF PAY UNAVAILABLE UNAVAILA BLE O UNAVAILABLE UNAVAILA BLE EXCELLUS BCBS B [id number] S [id number] NATALIIA CMS [id number] SP [id number] NATALIIA [id number] SP [id number] [place] 200/700 [id number] FA2 [id number] BC[facility] 302/307 [id number] FA2 [id number] [facility] P [id number] S [id number] NATALIIA [id number] SP [id number] [facility] [id number] SP [id number] SELF PAY ONLY UNAVAILABLE SP UNAV AILABLE SELF PAY ONLY [id number] SP [id number] Self Pay P [id number] S [id number] Self Pay P UNAVAILABLE S UNAVAILA BLE Medicaid P [id number] S [id number] [facility] Community Plan P [id number] S [id number] Problems, Conditions, and Diagnoses No Information Surgeries/Procedures No Information Results No Information Social History No Information
[2020-11-28] MEDS ORDERED: OLANZapine ORAL DISINTEGRATING TAB 5MG PO ONE (21:45)
[2020-11-28 21:55] LABS: HEMATOCRIT 40.5 % (42.0-52.0); HEMOGLOBIN 13.4 g/dl (13.5-17.5); MEAN CORPUSCULAR HEMOGLOBIN 33.3 pg (27.0-33.0); MEAN CORPUSCULAR HGB CONC 33.1 g/dl (32.0-36.5); MEAN CORPUSCULAR VOLUME 100.7 fl (80.0-96.0); PLATELET COUNT, AUTOMATED 141 10^3/uL (150-450); RED BLOOD COUNT 4.02 10^6/uL (4.30-6.10); WHITE BLOOD COUNT 12.8 10^3/uL (4.0-10.0)
[2020-11-28 22:18] LABS: AMPHETAMINES LEVEL URINE NEGATIVE (NEGATIVE); BARBITURATES URINE NEGATIVE (NEGATIVE); BENZODIAZEPINES URINE NEGATIVE (NEGATIVE); CANNABINOIDS URINE NEGATIVE (NEGATIVE); COCAINE METABOLITE URINE NEGATIVE (NEGATIVE); METHADONE URINE NEGATIVE (NEGATIVE); OPIATES URINE NEGATIVE (NEGATIVE); PHENCYCLIDINE URINE NEGATIVE (NEGATIVE)
--- OUTSIDE RECORDS SUMMARY | 2020-11-28 22:35 | CCD ---
Author Author [facility] Organization [facility] Address Unknown Phone Unavailable Support Name Relationship Address Phone Sharon Bales Next Of Kin Unknown Unavailable Sari Sanz Next Of Kin [address] [place] [address] [employer] Next Of Kin [address] [place] [phone] [place] [address] JRC* [place] [address] UE Next Of Kin Unknown Unavailable UNEMPLOYED Next Of Kin Unknown UN Next Of Kin Unknown Unavailable MAYT SUPERCENTER Next Of Kin [address] [place] [address] SHARON BALES Next Of Kin [address] [place] [address] ATUL BALES Next Of Kin [address] [place] [address] Re-disclosure Warning The records that you are [...] is protected by Article 27-F of the [facility] Public Health law. If you continue you may have access to information: Regarding HIV / AIDS; Provided by facilities licensed or operated by the [facility] Office of Mental Health; or Provided by the [facility] Office for People With Developmental Disabilities. If such information is present, then the following [facility] mandated warning applies: This information has been [...] law may result in a fine or penitentiary sentence or both. A general authorization for [...] VACCINE Moderna 06/17/2020 12:00:00 AM EDT completed Atzip Vaccine Series Complete: YESThis Data wa s Submitted to [facility] Via Atzip. COVID-19 VACCINE Moderna 05/20/2020 12:00:00 AM EDT completed FITiSTSIShout Vaccine Series Complete: NOThis Data was Submitted to [facility] Via Atzip. Medications Medication Brand Name Start Date Product [...] matias Policy Matias Plan Information Medicaid S [id number] S [id number] [facility] Care [facility] P [id number] S [id number] Medicaid S [id number] S [id number] [facility] [id number] SP [id number] [facility] Community Plan P [id number] S [id number] Medicaid S [id number] S [id number] [facility] P [id number] S [id number] [facility] Plan P [id number] S [id number] MEDICAID [id number] SP [id number] [facility](MCAID) O [id number] S [id number] [facility] P [id number] S [id number] Medicaid S [id number] S [id number] MEDICAID [id number] SP [id number] SELF PAY ONLY [id number] SP [id number] SELF PAY UNAVAILABLE UNAVAILA BLE O UNAVAILABLE UNAVAILA BLE EXCELLUS BCBS B [id number] S [id number] NATALIIA CMS [id number] SP [id number] NATALIIA [id number] SP [id number] BCBS [place] 200/700 [id number] FA2 [id number] BCBS [facility] 302/307 [id number] FA2 [id number] [facility] P [id number] S [id number] NATALIIA [id number] SP [id number] [facility] [id number] SP [id number] SELF PAY ONLY UNAVAILABLE SP UNAV AILABLE SELF PAY ONLY [id number] SP [id number] Self Pay P [id number] S [id number] Self Pay P UNAVAILABLE S UNAVAILA BLE Medicaid P [id number] S [id number] [facility] Community Plan P [id number] S [id number] Problems, Conditions, and Diagnoses No Information Surgeries/Procedures No Information Results No Information Social History No Information
[2020-11-28 22:38] LABS: BLOOD UREA NITROGEN 8 MG/DL (7-18); CALCIUM LEVEL 9.2 MG/DL (8.5-10.1); CARBON DIOXIDE LEVEL 26 MEQ/L (21-32); CHLORIDE LEVEL 102 MEQ/L (98-107); CREATININE FOR GFR 1.15 MG/DL (0.70-1.30); GLOMERULAR FILTRATION RATE > 60.0 (>60); GLUCOSE, FASTING 112 MG/DL (70-100); POTASSIUM SERUM 3.7 MEQ/L (3.5-5.1); SODIUM LEVEL 138 MEQ/L (136-145)
[2020-11-28 22:39] LABS: ACETAMINOPHEN LEVEL < 2.0 UG/ML (10.0-30.0); ALT/SGPT 94 U/L (12-78); BILIRUBIN,DIRECT 0.5 MG/DL (0.0-0.2); BILIRUBIN,TOTAL 1.4 MG/DL (0.2-1.0); ETHYL ALCOHOL (ETHANOL) < 0.003 % (0.000-0.010); SALICYLATE LEVEL < 1.7 MG/DL (5.0-30.0); TOTAL PROTEIN 8.3 GM/DL (6.4-8.2)
[2020-11-29] MEDS ORDERED: LORazepam 2 MG TAB PO ONE ×2 (00:05→01:45)
[2020-11-29] MEDS ORDERED: KEPP1TAB2 PO (06:14)
[2020-11-29] MEDS ORDERED: HOME MED LIST COMPLETE! XX SCH (06:15)
--- NOTE | 2020-11-29 08:08 | MHIPNPDOC ---
[facility] Progress Note Progress Note DATE OF SERVICE: 11/29/20 Patient presented by PSA, meets criteria for involuntary admission, patient presenting with psychotic symptoms. See PSA report for details. Vital Signs Vital Signs Date Time Temp Pulse Resp B/P (MAP) Pulse Ox O2 Delivery O2 Flow Rate FiO2 11/29/20 06:48 98.3 69 16 121/62 (81) 98 Room Air Laboratory Data 24H Labs Laboratory Tests 2 11/28/20 21:42: Nucleated Red Blood Cells % (auto) 0.0, Anion Gap 10, Glomerular Filtration Rate > 60.0, Calcium Level 9.2, Total Bilirubin 1.4H, Direct Bilirubin 0.5H, Aspartate Amino Transf (AST/SGOT) 79H, Alanine Aminotransferase (ALT/SGPT) 94H, Alkaline Phosphatase 111, Total Protein 8.3H, Albumin 4.0, Albumin/Globulin Ratio 0.9, Thyroid Stimulating Hormone (TSH) 1.280, Salicylates Level < 1.7L, Urine Opiates Screen NEGATIVE, Urine Methadone Screen NEGATIVE, Acetaminophen Level < 2.0L, Urine Barbiturates Screen NEGATIVE, Urine Phencyclidine Screen NEGATIVE, Urine Amphetamines Screen NEGATIVE, Urine Benzodiazepines Screen NEGATIVE, Urine Cocaine Metabolite Screen NEGATIVE, Urine Cannabinoids Screen NEGATIVE, Ethyl Alcohol Level < 0.003 CBC/BMP Laboratory Tests 11/28/20 21:42 Current Medications Current Medications Medications (Trade) Dose Ordered Sig/Wade Route PRN Reason Start Time Stop Time Status Last Admin Dose Admin Home Med (Home Med List Complete!) ASDIRECTED XX 11/29/20 06:15 11/29/20 06:17 DC Allergies Coded Allergies: No Known Allergies (Unverified , 08/22/18) SOPHIA ANDRE MD Nov 29, 2020 08:08
[2020-11-29 10:59] LABS: RSV AMPLIFICATION NEGATIVE (NEGATIVE)
[2020-11-29] MEDS ORDERED: ACETAMINOPHEN TAB 650MG DOSE (2X325MG) PO PRN (16:45)
[2020-11-29] MEDS ORDERED: traZODone 50 MG TAB PO PRN (16:45)
[2020-11-29] MEDS ORDERED: OLANZapine ORAL DISINTEGRATING TAB 5MG PO PRN (16:45)
[2020-11-29] MEDS ORDERED: MOM 30ML SUSPENSION UDC PO PRN (16:45)
[2020-11-29] MEDS ORDERED: MAALOX 30 ML SUSP *UDC PO PRN (16:45)
--- OUTSIDE RECORDS SUMMARY | 2020-11-29 16:56 | CCD ---
Author Author [facility] Organization [facility] Address Unknown Phone Unavailable Support Name Relationship Address Phone Sharon Bales Next Of Kin Unknown Unavailable Sari Sanz Next Of Kin [address] [place] [address] [employer] Next Of Kin [address] [place] [id number] [place] [address] [employer]* [place] [address] [employer] Next Of Kin Unknown Unavailable UNEMPLOYED Next Of Kin Unknown UN Next Of Kin Unknown Unavailable MAYT SUPERCENTER Next Of Kin [id number] [place] [address] SHARON BALES Next Of Kin [address] [place] [address] ATUL BALES Next Of Kin [address] [place] [address] Re-disclosure Warning The records that you are [...] is protected by Article 27-F of the [facility] Public Health law. If you continue you may have access to information: Regarding HIV / AIDS; Provided by facilities licensed or operated by the [facility] Office of Mental Health; or Provided by the [facility] Office for People With Developmental Disabilities. If such information is present, then the following [facility] mandated warning applies: This information has [...] law may result in a fine or fpc sentence or both. A general authorization for [...] VACCINE Moderna 06/17/2020 12:00:00 AM EDT completed [employer] Vaccine Series Complete: YESThis Data wa s Submitted to [facility] Via [employer]. COVID-19 VACCINE Moderna 05/20/2020 12:00:00 AM EDT completed [employer] Vaccine Series Complete: NOThis Data was Submitted to [facility] Via [employer]. Medications Medication Brand Name Start Date Product [...] matias Policy Matias Plan Information Medicaid S [id number] S [id number] [facility] Care [facility] P [id number] S [id number] Medicaid S [id number] S [id number] [facility] COMMUNITY [facility] [id number] SP [id number] [facility] Community Plan P [id number] S [id number] Medicaid S [id number] S [id number] [facility] P [id number] S [id number] [facility] Plan P [id number] S [id number] MEDICAID [id number] SP [id number] [facility](MCAID) O [id number] S [id number] [facility] P [id number] S [id number] Medicaid S [id number] MEDICAID [id number] SP [id number] SELF PAY ONLY [id number] SP [id number] SELF PAY UNAVAILABLE UNAVAILA BLE O UNAVAILABLE UNAVAILA BLE EXCELLUS BCBS B [id number] S [id number] NATALIIA CMS [id number] SP [id number] NATALIIA [id number] SP [id number] [place] 200/700 [id number] BCBS [facility] [id number] [id number] [facility] P [id number] S [id number] NATALIIA [id number] SP [id number] [facility] [id number] SP [id number] SELF PAY ONLY UNAVAILABLE SP UNAV AILABLE SELF PAY ONLY [id number] SP [id number] Self Pay P [id number] S [id number] Self Pay P UNAVAILABLE S UNAVAILA BLE Medicaid P [id number] S [id number] [facility] Community Plan P [id number] S [id number] Problems, Conditions, and Diagnoses No Information Surgeries/Procedures No Information Results No Information Social History No Information
[2020-11-29 20:46] VITALS: BP 121/82
[2020-11-29] MEDS: levETIRAcetam 250MG TABLET (KEPPRA) PO SCH (22:10)
[2020-11-30 06:35] VITALS: BP 128/71
[2020-11-30] MEDS ORDERED: NICOTINE 7 MG/24 HR TRANSDERMAL TD SCH (09:00)
[2020-11-30] MEDS: levETIRAcetam 250MG TABLET (KEPPRA) PO SCH ×2 (10:10→22:03)
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
[2020-11-30 14:03] LABS: CHOLESTEROL RISK RATIO 2.086 (<5)
[2020-11-30 17:39] VITALS: BP 100/54
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
[2020-11-30] MEDS ORDERED: ARIPiprazole 10 MG TAB PO SCH (21:00)
[2020-11-30 22:31] VITALS: BP 123/65
--- NOTE | 2020-11-30 22:54 | REPVR ---
PROCEDURE INFORMATION: Exam: CT Head Without Contrast Exam date and time: 11/30/2020 10:43 PM Age: 35 years old Clinical indication: Pain; Headache; Additional info: Interval check for subdural bleed TECHNIQUE: Imaging protocol: Computed tomography of the head without contrast. Radiation optimization: All CT scans at this facility use at least one of these dose optimization techniques: automated exposure control; mA and/or kV adjustment per patient size (includes targeted exams where dose is matched to clinical indication); or iterative reconstruction. COMPARISON: CT Head without contrast 11/30/2020 1:16 PM FINDINGS: Brain: Right frontal encephalomalacia. The carter-white differentiation is maintained. No hemorrhage. No edema. Small acute subdural hemorrhage in the right parietal lobe measures 4 mm with no significant change from prior study. Cerebral ventricles: No ventriculomegaly. Paranasal sinuses: Visualized sinuses are unremarkable. No fluid levels. Mastoid air cells: Visualized mastoid air cells are well aerated. Bones/joints: Unremarkable. No acute fracture. Soft tissues: Unremarkable. IMPRESSION: Small acute subdural hemorrhage in the right parietal lobe with no significant change from prior study. Electronically signed by: Bonilla Mcqueen On 11/30/2020 22:54:16 PM
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
[2020-11-30 23:52] VITALS: BP 112/65
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
== END 2020-11-30 23:52 | disposition other institution (70) | DRG 751 ==
LOC: M ED 20:53 → M ED INP 11-29 16:43 → M PSY 11-29 20:46
PROVIDERS: ADMIT Student in an Organized Health Care Education/Training Program; ATTEND Student in an Organized Health Care Education/Training Program
DX: F29 Unspecified psychosis not due to a substance or known physiological condition (principal); G40.309 Generalized idiopathic epilepsy and epileptic syndromes, not intractable, without status epilepticus

== ENCOUNTER 2021-01-22 16:02 | Emergency (ER) | payer MEDICAID, OTHER ==
[~2021-01-22] VITALS: Ht 167.6 cm; Wt 70.5 kg
[2021-01-22] MEDS ORDERED: levETIRAcetam INJection 1,000 MG in D5W 100 ML IV ONE (16:40)
[2021-01-22] MEDS ORDERED: NS 1,000 ML IV ONE (16:40)
[2021-01-22] MEDS ORDERED: LIDOCAINE W/EPINEPHRINE 1% 20ML VIAL SC ONE (16:45)
[2021-01-22] MEDS ORDERED: BOOSTRIX/ADACEL VACCINE (DIPHTH/PERTUSS/ACELL/TETANUS) 0.5ML SYR IM ONE (17:00)
[2021-01-22 17:07] LABS: BASO % 0.4 % (0.0-1.0); EOS % 0.1 % (0.0-3.0); HEMATOCRIT 40.2 % (42.0-52.0); HEMOGLOBIN 13.6 g/dl (13.5-17.5); LYMPH # 0.4 10^3/uL (1.5-5.0); LYMPH % 4.3 % (24.0-44.0); MEAN CORPUSCULAR HEMOGLOBIN 33.3 pg (27.0-33.0); MEAN CORPUSCULAR HGB CONC 33.8 g/dl (32.0-36.5); MEAN CORPUSCULAR VOLUME 98.3 fl (80.0-96.0); MONO # 0.8 10^3/uL (0.0-0.8); MONO % 8.4 % (2.0-8.0); NEUTROPHILS # 8.4 10^3/uL (1.5-8.5); NEUTROPHILS % 86.4 % (36.0-66.0); PLATELET COUNT, AUTOMATED 141 10^3/uL (150-450); RED BLOOD COUNT 4.09 10^6/uL (4.30-6.10); WHITE BLOOD COUNT 9.7 10^3/uL (4.0-10.0)
[2021-01-22 17:15] VITALS: BP 175/95
[2021-01-22 17:30] LABS: BLOOD UREA NITROGEN 11 MG/DL (7-18); CARBON DIOXIDE LEVEL 23 MEQ/L (21-32); CHLORIDE LEVEL 105 MEQ/L (98-107); CREATININE FOR GFR 1.35 MG/DL (0.70-1.30); GLOMERULAR FILTRATION RATE > 60.0 (>60); GLUCOSE, FASTING 151 MG/DL (70-100); POTASSIUM SERUM 3.5 MEQ/L (3.5-5.1); SODIUM LEVEL 141 MEQ/L (136-145)
[2021-01-22] MEDS ORDERED: DERMABOND TOPICAL SKIN ADHESIVE TOP ONE (18:00)
== END 2021-01-22 20:03 | disposition home or self-care (01) ==
LOC: EDUNIT# 16:02 → EDBD 16:02 → M ED 16:02
DX: R56.9 Unspecified convulsions (principal); S01.81XA Laceration without foreign body of other part of head, initial encounter; X58.XXXA Exposure to other specified factors, initial encounter; Y92.9 Unspecified place or not applicable; Y93.9 Activity, unspecified; Y99.9 Unspecified external cause status; Z87.820 Personal history of traumatic brain injury
CPT/HCPCS: 12013; 70450; 70486; 72125; 80048; 80180; 85025; 90471; 90715; 96365; 96366; 99284; J1953

== ENCOUNTER 2021-01-31 15:42 | Emergency (ER) | payer OTHER ==
[~2021-01-31] VITALS: Ht 167.6 cm; Wt 68.2 kg
[2021-01-31 15:45] VITALS: BP 141/92
== END 2021-01-31 17:01 | disposition home or self-care (01) ==
LOC: M ED 15:42
DX: Z48.02 Encounter for removal of sutures (principal); T81.30XA Disruption of wound, unspecified, initial encounter; Y92.9 Unspecified place or not applicable; Y93.9 Activity, unspecified; Z79.899 Other long term (current) drug therapy

== ENCOUNTER 2021-09-07 15:48 | Observation (INO) | payer OTHER ==
[~2021-09-07] VITALS: Ht 167.6 cm; Wt 59.6 kg
[2021-09-07] MEDS ORDERED: NS 1,000 ML IV ONE ×2 (16:15→17:35)
[2021-09-07 16:54] LABS: BASO % 0.4 % (0.0-1.0); EOS % 0.1 % (0.0-3.0); HEMATOCRIT 44.4 % (42.0-52.0); HEMOGLOBIN 14.9 g/dl (13.5-17.5); LYMPH # 0.2 10^3/uL (1.5-5.0); LYMPH % 2.3 % (24.0-44.0); MEAN CORPUSCULAR HGB CONC 33.6 g/dl (32.0-36.5); MEAN CORPUSCULAR VOLUME 95.5 fl (80.0-96.0); MONO # 0.8 10^3/uL (0.0-0.8); MONO % 7.9 % (2.0-8.0); NEUTROPHILS # 9.3 10^3/uL (1.5-8.5); NEUTROPHILS % 88.7 % (36.0-66.0); PLATELET COUNT, AUTOMATED 202 10^3/uL (150-450); RED BLOOD COUNT 4.65 10^6/uL (4.30-6.10); WHITE BLOOD COUNT 10.4 10^3/uL (4.0-10.0)
[2021-09-07] MEDS ORDERED: MIDAZOLAM INJ 2MG/2ML VIAL (J2250 PER 1MG) As Ordered ONE (17:21)
[2021-09-07] MEDS ORDERED: MIDAZOLAM INJ 2MG/2ML VIAL (J2250 PER 1MG) IV STA (17:22)
[2021-09-07] MEDS ORDERED: levETIRAcetam INJection 1,000 MG in D5W 100 ML IV ONE (17:25)
[2021-09-07 17:36] LABS: ALBUMIN 3.4 GM/DL (3.2-5.2); ALT/SGPT 24 U/L (12-78); BILIRUBIN,DIRECT 0.3 MG/DL (0.0-0.2); BILIRUBIN,TOTAL 0.6 MG/DL (0.2-1.0); BLOOD UREA NITROGEN 6 MG/DL (7-18); CALCIUM LEVEL 9.3 MG/DL (8.5-10.1); CARBON DIOXIDE LEVEL 24 MEQ/L (21-32); CHLORIDE LEVEL 103 MEQ/L (98-107); CREATININE FOR GFR 1.28 MG/DL (0.70-1.30); GLOMERULAR FILTRATION RATE > 60.0 (>60); GLUCOSE, FASTING 148 MG/DL (70-100); POTASSIUM SERUM 3.4 MEQ/L (3.5-5.1); SODIUM LEVEL 140 MEQ/L (136-145); THYROID STIMULATING HORMONE 0.726 uIU/ML (0.358-3.740); TOTAL PROTEIN 7.9 GM/DL (6.4-8.2)
[2021-09-07 17:36] LABS: AMPHETAMINES LEVEL URINE NEGATIVE (NEGATIVE); BARBITURATES URINE NEGATIVE (NEGATIVE); BENZODIAZEPINES URINE NEGATIVE (NEGATIVE); CANNABINOIDS URINE NEGATIVE (NEGATIVE); COCAINE METABOLITE URINE NEGATIVE (NEGATIVE); METHADONE URINE NEGATIVE (NEGATIVE); OPIATES URINE NEGATIVE (NEGATIVE); PHENCYCLIDINE URINE NEGATIVE (NEGATIVE)
[2021-09-07 19:08] LABS: ETHYL ALCOHOL (ETHANOL) < 0.003 % (0.000-0.010)
[2021-09-07] MEDS ORDERED: HOME MED LIST COMPLETE! XX SCH (20:05)
[2021-09-07] MEDS: THIAMINE 100 MG TAB PO SCH (21:00)
[2021-09-07] MEDS ORDERED: LORazepam 2 MG TAB PO PRN (21:05)
[2021-09-07] MEDS ORDERED: ACETAMINOPHEN TAB 650MG DOSE (2X325MG) PO PRN (21:05)
[2021-09-07 22:47] LABS: RSV AMPLIFICATION NEGATIVE (NEGATIVE)
[2021-09-08 08:14] VITALS: BP 122/71
[2021-09-08 08:15] VITALS: BP 122/71
[2021-09-08] MEDS ORDERED: FOLIC ACID 1 MG TAB PO SCH (09:00)
[2021-09-08] MEDS ORDERED: MULTIVITAMINS/MINERALS THERAP 1 TAB PO SCH (09:00)
[2021-09-08] MEDS ORDERED: DIVALPROEX 500 MG TAB PO SCH (09:00)
[2021-09-08] MEDS ORDERED: levETIRAcetam 250MG TABLET (KEPPRA) PO SCH (09:00)
[2021-09-08 09:01] LABS: HEMATOCRIT 43.4 % (42.0-52.0); HEMOGLOBIN 14.6 g/dl (13.5-17.5); MEAN CORPUSCULAR HEMOGLOBIN 32.6 pg (27.0-33.0); MEAN CORPUSCULAR HGB CONC 33.6 g/dl (32.0-36.5); MEAN CORPUSCULAR VOLUME 96.9 fl (80.0-96.0); PLATELET COUNT, AUTOMATED 167 10^3/uL (150-450); RED BLOOD COUNT 4.48 10^6/uL (4.30-6.10); WHITE BLOOD COUNT 11.4 10^3/uL (4.0-10.0)
[2021-09-08 09:26] LABS: ALBUMIN 3.1 GM/DL (3.2-5.2); ALT/SGPT 23 U/L (12-78); BILIRUBIN,TOTAL 1.5 MG/DL (0.2-1.0); BLOOD UREA NITROGEN 6 MG/DL (7-18); CALCIUM LEVEL 8.9 MG/DL (8.5-10.1); CARBON DIOXIDE LEVEL 23 MEQ/L (21-32); CHLORIDE LEVEL 109 MEQ/L (98-107); CREATININE FOR GFR 0.84 MG/DL (0.70-1.30); GLOMERULAR FILTRATION RATE > 60.0 (>60); GLUCOSE, FASTING 72 MG/DL (70-100); POTASSIUM SERUM 3.7 MEQ/L (3.5-5.1); SODIUM LEVEL 141 MEQ/L (136-145); TOTAL PROTEIN 7.8 GM/DL (6.4-8.2)
[2021-09-08] MEDS: THIAMINE 100 MG TAB PO SCH (09:44)
[2021-09-08] MEDS ORDERED: VITMTA PO (12:59)
[2021-09-08] MEDS ORDERED: DEPA1TAB3 PO (12:59)
[2021-09-08 14:00] VITALS: BP 126/74
== END 2021-09-08 17:56 | disposition home or self-care (01) ==
LOC: EDBD 15:48 → M ED 15:48 → M ED INP 15:49 → ENRESERV 09-08 05:52 → M MSPAV 09-08 08:10
PROVIDERS: ADMIT Internal Medicine; ATTEND Internal Medicine
DX: G40.909 Epilepsy, unspecified, not intractable, without status epilepticus (principal); Z91.14 Patient's other noncompliance with medication regimen; E87.2 Acidosis; Z72.89 Other problems related to lifestyle; Z87.820 Personal history of traumatic brain injury; Z87.828 Personal history of other (healed) physical injury and trauma; Z79.899 Other long term (current) drug therapy; Z82.0 Family history of epilepsy and other diseases of the nervous system
CPT/HCPCS: 36415; 70450; 80048; 80053; 80076; 80180; 80307; 82077; 82550; 83605; 84443; 85025; 85027; 87631; 93005; 93041; 94760; 96361; 96365; 96375; 99285; J1953; J2250

== ENCOUNTER 2021-10-09 10:56 | Emergency (ER) | payer OTHER ==
[~2021-10-09] VITALS: Ht 167.6 cm; Wt 96.8 kg
[~2021-10-09 10:56] MED LIST changes: +DEPA1TAB3 PO; +VITMTA PO
[2021-10-09] MEDS ORDERED: MIDAZOLAM INJ 2MG/2ML VIAL (J2250 PER 1MG) IV STA (11:04)
[2021-10-09] MEDS ORDERED: levETIRAcetam INJection 1,000 MG in D5W 100 ML IV ONE (11:05)
[2021-10-09 11:40] LABS: HEMATOCRIT 56.4 % (42.0-52.0); MEAN CORPUSCULAR HEMOGLOBIN 32.8 pg (27.0-33.0); MEAN CORPUSCULAR HGB CONC 30.1 g/dl (32.0-36.5); MEAN CORPUSCULAR VOLUME 108.9 fl (80.0-96.0); PLATELET COUNT, AUTOMATED 234 10^3/uL (150-450); RED BLOOD COUNT 5.18 10^6/uL (4.30-6.10); WHITE BLOOD COUNT 14.5 10^3/uL (4.0-10.0)
[2021-10-09 13:34] LABS: BLOOD UREA NITROGEN 8 MG/DL (7-18); CALCIUM LEVEL 10.1 MG/DL (8.5-10.1); CARBON DIOXIDE LEVEL 13 MEQ/L (21-32); CHLORIDE LEVEL 98 MEQ/L (98-107); CREATININE FOR GFR 1.73 MG/DL (0.70-1.30); ETHYL ALCOHOL (ETHANOL) < 0.003 % (0.000-0.010); GLOMERULAR FILTRATION RATE 58.6 (>60); GLUCOSE, FASTING 132 MG/DL (70-100); SODIUM LEVEL 134 MEQ/L (136-145); VALPROIC ACID (DEPAKOTE) < 3.0 UG/ML (50.0-100.0)
[2021-10-09] MEDS ORDERED: NS 1,000 ML IV ONE (14:05)
[2021-10-09] MEDS ORDERED: KEPP1TAB PO (17:17)
[2021-10-09 17:41] VITALS: BP 145/87
== END 2021-10-09 17:46 | disposition home or self-care (01) ==
LOC: M ED 10:56
DX: G40.909 Epilepsy, unspecified, not intractable, without status epilepticus (principal)
CPT/HCPCS: 36415; 80048; 80164; 82077; 82550; 85027; 93041; 94760; 96361; 96374; 96375; 99285; J1953; J2250

== ENCOUNTER 2022-02-10 09:23 | Emergency (ER) | payer OTHER ==
[~2022-02-10] VITALS: Ht 167.6 cm; Wt 68.2 kg
[2022-02-10] MEDS ORDERED: NS 1,000 ML IV ONE (09:35)
[2022-02-10] MEDS ORDERED: levETIRAcetam INJection 1,000 MG in D5W 100 ML IV ONE (10:05)
[2022-02-10] MEDS ORDERED: OXAZEPAM 15MG CAP PO ONE (10:05)
[2022-02-10 10:16] LABS: VENOUS BASE EXCESS -10.3 (-2.0-2.0); VENOUS HCO3 12.6 MEQ/L (23.0-27.0); VENOUS O2 SATURATION 99.1 % (60.0-80.0); VENOUS PARTIAL PRESSURE CO2 22.8 mmHg (38.0-50.0); VENOUS PARTIAL PRESSURE O2 168.5 mmHg (30.0-50.0); VENOUS STANDARD HCO3 16.5 MEQ/L; VENOUS TOTAL CO2 13.3 MEQ/L (24.0-28.0)
[2022-02-10 10:18] LABS: BASO # 0.1 10^3/uL (0.0-0.2); BASO % 0.7 % (0.0-1.0); EOS # 0.2 10^3/uL (0.0-0.5); EOS % 1.7 % (0.0-3.0); HEMATOCRIT 47.8 % (42.0-52.0); HEMOGLOBIN 15.7 g/dl (13.5-17.5); LYMPH # 1.9 10^3/uL (1.5-5.0); LYMPH % 16.6 % (24.0-44.0); MEAN CORPUSCULAR HEMOGLOBIN 31.3 pg (27.0-33.0); MEAN CORPUSCULAR HGB CONC 32.8 g/dl (32.0-36.5); MEAN CORPUSCULAR VOLUME 95.4 fl (80.0-96.0); MONO # 0.9 10^3/uL (0.0-0.8); MONO % 7.6 % (2.0-8.0); NEUTROPHILS # 8.2 10^3/uL (1.5-8.5); NEUTROPHILS % 72.4 % (36.0-66.0); PLATELET COUNT, AUTOMATED 215 10^3/uL (150-450); RED BLOOD COUNT 5.01 10^6/uL (4.30-6.10); WHITE BLOOD COUNT 11.3 10^3/uL (4.0-10.0)
[2022-02-10 11:21] VITALS: BP 113/79
[2022-02-10 12:03] LABS: AMPHETAMINES LEVEL URINE NEGATIVE (NEGATIVE); BARBITURATES URINE NEGATIVE (NEGATIVE); BENZODIAZEPINES URINE NEGATIVE (NEGATIVE); CANNABINOIDS URINE NEGATIVE (NEGATIVE); COCAINE METABOLITE URINE NEGATIVE (NEGATIVE); METHADONE URINE NEGATIVE (NEGATIVE); PHENCYCLIDINE URINE NEGATIVE (NEGATIVE)
[2022-02-10 12:04] LABS: OPIATES URINE NEGATIVE (NEGATIVE)
[2022-02-10 12:06] LABS: ETHYL ALCOHOL (ETHANOL) 0.003 % (0.000-0.010); LIPASE 30 U/L (12-53)
[2022-02-10 12:07] LABS: BILIRUBIN,DIRECT 0.2 MG/DL (<0.4)
[2022-02-10 12:18] LABS: ALBUMIN 4.1 G/DL (3.2-5.2); ALKALINE PHOSPHATASE 103 U/L (46-116); ALT/SGPT 32 U/L (7.0-40); AST/SGOT 48 U/L (<34); BILIRUBIN,TOTAL 0.9 MG/DL (0.3-1.2); BLOOD UREA NITROGEN 12 MG/DL (9-23); CALCIUM LEVEL 9.4 MG/DL (8.5-10.1); CARBON DIOXIDE LEVEL 24 MMOL/L (20-31); CHLORIDE LEVEL 102 MMOL/L (98-107); CREATININE FOR GFR 0.97 MG/DL (0.70-1.30); FREE THYROXINE INDEX 1.6 % (1.4-3.8); GLOMERULAR FILTRATION RATE > 60.0 (>60); GLUCOSE, FASTING 89 MG/DL (60-100); POTASSIUM SERUM 4.7 MMOL/L (3.5-5.1); SODIUM LEVEL 136 MMOL/L (136-145); T UPTAKE 36.6 % (22.5-37.0); THYROID STIMULATING HORMONE 0.608 uIU/ML (0.55-4.78); THYROXINE (T4) 4.5 UG/DL (4.5-10.9)
== END 2022-02-10 13:02 | disposition home or self-care (01) ==
LOC: EDBD 09:23 → M ED 09:23
DX: R56.9 Unspecified convulsions (principal); S00.31XA Abrasion of nose, initial encounter; Y92.099 Unspecified place in other non-institutional residence as the place of occurrence of the external cause; F17.200 Nicotine dependence, unspecified, uncomplicated; Z79.899 Other long term (current) drug therapy
CPT/HCPCS: 70450; 70486; 72125; 80048; 80076; 80180; 80307; 82077; 82803; 83690; 83735; 84436; 84443; 84479; 85025; 93005; 93041; 96361; 96365; 96366; 99285; J1953

== ENCOUNTER 2022-07-23 18:26 | Emergency (ER) | payer OTHER ==
[~2022-07-23] VITALS: Ht 165.1 cm; Wt 68.2 kg
[2022-07-23 19:21] LABS: BASO # 0.1 10^3/uL (0.0-0.2); BASO % 0.6 % (0.0-1.0); EOS # 0.1 10^3/uL (0.0-0.5); HEMATOCRIT 44.5 % (42.0-52.0); HEMOGLOBIN 14.8 g/dl (13.5-17.5); LYMPH # 1.6 10^3/uL (1.5-5.0); LYMPH % 19.9 % (24.0-44.0); MEAN CORPUSCULAR HEMOGLOBIN 30.4 pg (27.0-33.0); MEAN CORPUSCULAR HGB CONC 33.3 g/dl (32.0-36.5); MEAN CORPUSCULAR VOLUME 91.4 fl (80.0-96.0); MONO # 0.5 10^3/uL (0.0-0.8); MONO % 5.9 % (2.0-8.0); NEUTROPHILS # 5.9 10^3/uL (1.5-8.5); NEUTROPHILS % 72.5 % (36.0-66.0); PLATELET COUNT, AUTOMATED 216 10^3/uL (150-450); RED BLOOD COUNT 4.87 10^6/uL (4.30-6.10); WHITE BLOOD COUNT 8.1 10^3/uL (4.0-10.0)
[2022-07-23 19:43] LABS: ACETAMINOPHEN LEVEL < 2.0 UG/ML (10.0-20.0); ALBUMIN 4.3 G/DL (3.2-5.2); ALKALINE PHOSPHATASE 99 U/L (46-116); ALT/SGPT 37 U/L (7.0-40); AST/SGOT 30 U/L (<34); BILIRUBIN,DIRECT 0.2 MG/DL (<0.4); BILIRUBIN,TOTAL 0.6 MG/DL (0.3-1.2); BLOOD UREA NITROGEN 9 MG/DL (9-23); CALCIUM LEVEL 8.5 MG/DL (8.5-10.1); CARBON DIOXIDE LEVEL 22 MMOL/L (20-31); CHLORIDE LEVEL 104 MMOL/L (98-107); GLOMERULAR FILTRATION RATE > 60.0 (>60); GLUCOSE, FASTING 91 MG/DL (60-100); SALICYLATE LEVEL < 3.0 MG/DL (<30); SODIUM LEVEL 139 MMOL/L (136-145); TOTAL PROTEIN 7.7 G/DL (5.7-8.2)
[2022-07-23 19:45] LABS: THYROID STIMULATING HORMONE 0.372 uIU/ML (0.55-4.78)
[2022-07-23 20:05] LABS: AMPHETAMINES LEVEL URINE NEGATIVE (NEGATIVE); BARBITURATES URINE NEGATIVE (NEGATIVE); BENZODIAZEPINES URINE NEGATIVE (NEGATIVE); CANNABINOIDS URINE NEGATIVE (NEGATIVE); COCAINE METABOLITE URINE NEGATIVE (NEGATIVE); METHADONE URINE NEGATIVE (NEGATIVE); OPIATES URINE NEGATIVE (NEGATIVE); PHENCYCLIDINE URINE NEGATIVE (NEGATIVE)
[2022-07-23 20:11] LABS: CPK CREATINE PHOSPHOKINASE 338 U/L (46-171)
[2022-07-23] MEDS ORDERED: DERMABOND TOPICAL SKIN ADHESIVE TOP ONE (20:20)
[2022-07-23] MEDS ORDERED: levETIRAcetam INJection 500 MG in D5W MINI-BAG PLUS 100 ML IV ONE (20:25)
[2022-07-23] MEDS ORDERED: BOOSTRIX VACCINE (TETANUS/DIPHTH/ACEL. PERTUSSIS) 0.5ML SYR IM ONE (20:25)
[2022-07-23] MEDS ORDERED: NS 1,000 ML IV ONE (20:35)
[2022-07-23 22:30] VITALS: TEMP 98
[2022-07-24 01:00] VITALS: BP 108/51; O2SAT 95
== END 2022-07-24 03:05 | disposition home or self-care (01) ==
LOC: M ED 18:26
DX: S01.81XA Laceration without foreign body of other part of head, initial encounter (principal); W19.XXXA Unspecified fall, initial encounter; Y92.009 Unspecified place in unspecified non-institutional (private) residence as the place of occurrence of the external cause; Y93.89 Activity, other specified; Y99.8 Other external cause status; F10.129 Alcohol abuse with intoxication, unspecified; G40.909 Epilepsy, unspecified, not intractable, without status epilepticus; G47.00 Insomnia, unspecified; F17.200 Nicotine dependence, unspecified, uncomplicated; Z87.820 Personal history of traumatic brain injury
CPT/HCPCS: 12013; 70450; 70486; 71045; 72125; 80048; 80076; 80143; 80307; 82077; 82550; 84443; 85025; 90715; 93005; 93041; 94760; 96374; 99285; J1953

== ENCOUNTER → 2022-08-16 | Outpatient (CLI) | payer OTHER | LOC: M PLARAD 13:07 | PROVIDERS: ATTEND Nurse Practitioner Family | DX: G40.89 Other seizures (principal); R40.4 Transient alteration of awareness; R42 Dizziness and giddiness ==

== ENCOUNTER → 2022-08-20 | Outpatient (CLI) | payer OTHER ==
[2022-08-20 14:55] LABS: HEMATOCRIT 44.4 % (42.0-52.0); HEMOGLOBIN 14.7 g/dl (13.5-17.5); MEAN CORPUSCULAR HEMOGLOBIN 30.6 pg (27.0-33.0); MEAN CORPUSCULAR HGB CONC 33.1 g/dl (32.0-36.5); MEAN CORPUSCULAR VOLUME 92.5 fl (80.0-96.0); PLATELET COUNT, AUTOMATED 215 10^3/uL (150-450); WHITE BLOOD COUNT 8.1 10^3/uL (4.0-10.0)
[2022-08-20 15:18] LABS: VALPROIC ACID (DEPAKOTE) < 3.0 UG/ML (50.0-100.0)
[2022-08-20 15:20] LABS: ALBUMIN 4.1 G/DL (3.2-5.2); ALKALINE PHOSPHATASE 90 U/L (46-116); ALT/SGPT 33 U/L (7.0-40); AST/SGOT < 8 U/L (<34); BILIRUBIN,TOTAL 1.1 MG/DL (0.3-1.2); BLOOD UREA NITROGEN 14 MG/DL (9-23); CALCIUM LEVEL 9.3 MG/DL (8.5-10.1); CARBON DIOXIDE LEVEL 32 MMOL/L (20-31); CHLORIDE LEVEL 101 MMOL/L (98-107); CREATININE FOR GFR 1.09 MG/DL (0.70-1.30); GLOMERULAR FILTRATION RATE > 60.0 (>60); GLUCOSE, FASTING 70 MG/DL (60-100); SODIUM LEVEL 137 MMOL/L (136-145)
== END ==
LOC: M LAB 12:28
PROVIDERS: ATTEND Nurse Practitioner Family
DX: R56.1 Post traumatic seizures (principal)

== ENCOUNTER 2023-03-07 01:14 | Emergency (ER) | payer OTHER ==
[2023-03-07 02:28] LABS: BASO # 0.1 10^3/uL (0.0-0.2); BASO % 0.5 % (0.0-1.0); EOS % 0.2 % (0.0-3.0); HEMATOCRIT 46.9 % (42.0-52.0); HEMOGLOBIN 15.7 g/dl (13.5-17.5); LYMPH # 2.8 10^3/uL (1.5-5.0); LYMPH % 23.1 % (24.0-44.0); MEAN CORPUSCULAR HEMOGLOBIN 32.2 pg (27.0-33.0); MEAN CORPUSCULAR HGB CONC 33.5 g/dl (32.0-36.5); MEAN CORPUSCULAR VOLUME 96.3 fl (80.0-96.0); MONO # 0.8 10^3/uL (0.0-0.8); MONO % 6.8 % (2.0-8.0); NEUTROPHILS # 8.5 10^3/uL (1.5-8.5); NEUTROPHILS % 69.2 % (36.0-66.0); PLATELET COUNT, AUTOMATED 236 10^3/uL (150-450); RED BLOOD COUNT 4.87 10^6/uL (4.30-6.10); WHITE BLOOD COUNT 12.3 10^3/uL (4.0-10.0)
[2023-03-07] MEDS ORDERED: NS 1,000 ML IV ONE (02:55)
[2023-03-07 02:57] LABS: ALBUMIN 4.1 G/DL (3.2-5.2); ALKALINE PHOSPHATASE 97 U/L (46-116); ALT/SGPT 19 U/L (7.0-40); AST/SGOT 17 U/L (<34); BILIRUBIN,DIRECT 0.2 MG/DL (<0.4); BILIRUBIN,TOTAL 0.7 MG/DL (0.3-1.2); BLOOD UREA NITROGEN 7 MG/DL (9-23); CALCIUM LEVEL 9.3 MG/DL (8.5-10.1); CARBON DIOXIDE LEVEL 22 MMOL/L (20-31); CHLORIDE LEVEL 105 MMOL/L (98-107); CREATININE FOR GFR 0.84 MG/DL (0.70-1.30); GLOMERULAR FILTRATION RATE > 60.0 (>60); GLUCOSE, FASTING 88 MG/DL (60-100); PHOSPHORUS LEVEL 4.3 MG/DL (2.5-4.9); POTASSIUM SERUM 4.1 MMOL/L (3.5-5.1); SODIUM LEVEL 138 MMOL/L (136-145); TOTAL PROTEIN 8.1 G/DL (5.7-8.2)
[2023-03-07] MEDS ORDERED: levETIRAcetam INJection 1,000 MG in D5W 100 ML IV ONE (03:05)
[2023-03-07 03:53] LABS: AMPHETAMINES LEVEL URINE NEGATIVE (NEGATIVE); BARBITURATES URINE NEGATIVE (NEGATIVE); BENZODIAZEPINES URINE NEGATIVE (NEGATIVE); CANNABINOIDS URINE NEGATIVE (NEGATIVE); COCAINE METABOLITE URINE NEGATIVE (NEGATIVE); METHADONE URINE NEGATIVE (NEGATIVE); OPIATES URINE NEGATIVE (NEGATIVE); PHENCYCLIDINE URINE NEGATIVE (NEGATIVE)
[2023-03-07 04:15] VITALS: BP 100/55; TEMP 98.4
[2023-03-07 04:17] VITALS: O2SAT 96
== END 2023-03-07 05:05 | disposition home or self-care (01) ==
LOC: M ED 01:14
DX: G40.909 Epilepsy, unspecified, not intractable, without status epilepticus (principal); F10.120 Alcohol abuse with intoxication, uncomplicated; Z79.899 Other long term (current) drug therapy; Z79.810 Long term (current) use of selective estrogen receptor modulators (SERMs)
CPT/HCPCS: 36415; 80048; 80076; 80180; 80307; 82077; 82140; 82330; 83605; 83735; 84100; 85025; 87486; 87581; 87633; 87798; 93041; 94760; 96365; 99285; J1953

== ENCOUNTER 2023-03-17 11:01 | Emergency (ER) | payer OTHER ==
[~2023-03-17] VITALS: Ht 170.2 cm; Wt 71.0 kg
[2023-03-17 11:13] VITALS: TEMP 96.7
[2023-03-17 11:37] LABS: BASO # 0.1 10^3/uL (0.0-0.2); BASO % 0.5 % (0.0-1.0); EOS # 0.2 10^3/uL (0.0-0.5); EOS % 1.5 % (0.0-3.0); HEMATOCRIT 47.8 % (42.0-52.0); HEMOGLOBIN 15.5 g/dl (13.5-17.5); LYMPH # 2.6 10^3/uL (1.5-5.0); LYMPH % 22.4 % (24.0-44.0); MEAN CORPUSCULAR HEMOGLOBIN 31.9 pg (27.0-33.0); MEAN CORPUSCULAR HGB CONC 32.4 g/dl (32.0-36.5); MEAN CORPUSCULAR VOLUME 98.4 fl (80.0-96.0); MONO % 8.8 % (2.0-8.0); NEUTROPHILS # 7.7 10^3/uL (1.5-8.5); NEUTROPHILS % 65.4 % (36.0-66.0); PLATELET COUNT, AUTOMATED 238 10^3/uL (150-450); RED BLOOD COUNT 4.86 10^6/uL (4.30-6.10); WHITE BLOOD COUNT 11.8 10^3/uL (4.0-10.0)
[2023-03-17] MEDS ORDERED: levETIRAcetam INJection 1,000 MG in D5W 100 ML IV ONE (11:40)
[2023-03-17 13:10] VITALS: O2SAT 96
[2023-03-17 13:15] VITALS: BP 104/67
== END 2023-03-17 13:46 | disposition home or self-care (01) ==
LOC: EDBD 11:01 → M ED 11:01
DX: G40.909 Epilepsy, unspecified, not intractable, without status epilepticus (principal); S01.81XA Laceration without foreign body of other part of head, initial encounter; X58.XXXA Exposure to other specified factors, initial encounter; Y92.9 Unspecified place or not applicable; Y93.9 Activity, unspecified; Y99.9 Unspecified external cause status; F10.10 Alcohol abuse, uncomplicated; G93.89 Other specified disorders of brain; M26.69 Other specified disorders of temporomandibular joint; Z79.899 Other long term (current) drug therapy
CPT/HCPCS: 12013; 70450; 72125; 80047; 80180; 82330; 85025; 93041; 94760; 96365; 96366; 99285; J1953

== ENCOUNTER 2023-03-25 11:19 | Emergency (ER) | payer OTHER ==
[~2023-03-25] VITALS: Ht 167.6 cm; Wt 68.2 kg
[2023-03-25 14:19] VITALS: BP 119/76; TEMP 97.6; O2SAT 100
== END 2023-03-25 14:22 | disposition home or self-care (01) ==
LOC: M ED 11:19
DX: Z48.02 Encounter for removal of sutures (principal)

== ENCOUNTER 2023-05-22 13:08 | Emergency (ER) | payer OTHER ==
[~2023-05-22] VITALS: Ht 165.1 cm; Wt 66.2 kg
[~2023-05-22 13:08] MED LIST changes: +FOLIC ACID 1MG TAB PO SCH; +MULTIVITAMINS/MINERALS THERAP 1 TAB PO SCH
[2023-05-22 13:21] VITALS: BP 155/89; O2SAT 97
[2023-05-22 13:26] VITALS: TEMP 96.5
[2023-05-22 13:41] LABS: BASO # 0.1 10^3/uL (0.0-0.2); BASO % 0.8 % (0.0-1.0); EOS # 0.1 10^3/uL (0.0-0.5); EOS % 1.1 % (0.0-3.0); HEMATOCRIT 45.3 % (42.0-52.0); HEMOGLOBIN 15.1 g/dl (13.5-17.5); LYMPH # 1.8 10^3/uL (1.5-5.0); LYMPH % 27.9 % (24.0-44.0); MEAN CORPUSCULAR HEMOGLOBIN 31.7 pg (27.0-33.0); MEAN CORPUSCULAR HGB CONC 33.3 g/dl (32.0-36.5); MEAN CORPUSCULAR VOLUME 95.2 fl (80.0-96.0); MONO # 0.8 10^3/uL (0.0-0.8); MONO % 12.1 % (2.0-8.0); NEUTROPHILS # 3.7 10^3/uL (1.5-8.5); NEUTROPHILS % 57.8 % (36.0-66.0); PLATELET COUNT, AUTOMATED 193 10^3/uL (150-450); RED BLOOD COUNT 4.76 10^6/uL (4.30-6.10); WHITE BLOOD COUNT 6.4 10^3/uL (4.0-10.0)
[2023-05-22 14:12] LABS: SALICYLATE LEVEL < 3.0 MG/DL (<30)
[2023-05-22 14:22] LABS: AMPHETAMINES LEVEL URINE NEGATIVE (NEGATIVE); BARBITURATES URINE NEGATIVE (NEGATIVE); CANNABINOIDS URINE NEGATIVE (NEGATIVE); COCAINE METABOLITE URINE NEGATIVE (NEGATIVE); METHADONE URINE NEGATIVE (NEGATIVE); OPIATES URINE NEGATIVE (NEGATIVE); PHENCYCLIDINE URINE NEGATIVE (NEGATIVE)
[2023-05-22 14:23] LABS: BENZODIAZEPINES URINE NEGATIVE (NEGATIVE)
[2023-05-22 15:39] LABS: ALBUMIN 4.2 G/DL (3.2-5.2); ALKALINE PHOSPHATASE 83 U/L (46-116); ALT/SGPT 98 U/L (7.0-40); AST/SGOT 101 U/L (<34); BILIRUBIN,DIRECT 0.2 MG/DL (<0.4); BILIRUBIN,TOTAL 0.5 MG/DL (0.3-1.2); BLOOD UREA NITROGEN 6 MG/DL (9-23); CALCIUM LEVEL 9.1 MG/DL (8.5-10.1); CARBON DIOXIDE LEVEL 30 MMOL/L (20-31); CHLORIDE LEVEL 105 MMOL/L (98-107); CREATININE FOR GFR 0.97 MG/DL (0.70-1.30); GLOMERULAR FILTRATION RATE > 60.0 (>60); GLUCOSE, FASTING 91 MG/DL (60-100); POTASSIUM SERUM 4.1 MMOL/L (3.5-5.1); SODIUM LEVEL 145 MMOL/L (136-145); TOTAL PROTEIN 7.8 G/DL (5.7-8.2)
[2023-05-22 15:42] LABS: THYROID STIMULATING HORMONE 0.315 uIU/ML (0.55-4.78)
[2023-05-22 16:22] LABS: ETHYL ALCOHOL (ETHANOL) 0.394 % (0.000-0.010)
[2023-05-22] MEDS ORDERED: LORazepam 2 MG TAB PO PRN (16:40)
[2023-05-22] MEDS ORDERED: THIAMINE 100 MG TAB PO SCH (21:00)
== END 2023-05-22 17:35 | disposition left against medical advice (07) ==
LOC: M ED 13:08
DX: F10.120 Alcohol abuse with intoxication, uncomplicated (principal); G40.909 Epilepsy, unspecified, not intractable, without status epilepticus; Z79.899 Other long term (current) drug therapy; Z53.9 Procedure and treatment not carried out, unspecified reason

== ENCOUNTER 2023-05-26 12:00 | Emergency (ER) | payer OTHER ==
[~2023-05-26] VITALS: Ht 167.6 cm; Wt 65.9 kg
[~2023-05-26 12:00] MED LIST changes: -FOLIC ACID 1MG TAB PO SCH; -MULTIVITAMINS/MINERALS THERAP 1 TAB PO SCH
[2023-05-26 12:48] LABS: BASO # 0.1 10^3/uL (0.0-0.2); BASO % 0.8 % (0.0-1.0); EOS % 0.4 % (0.0-3.0); HEMATOCRIT 44.2 % (42.0-52.0); HEMOGLOBIN 14.6 g/dl (13.5-17.5); LYMPH # 1.6 10^3/uL (1.5-5.0); LYMPH % 16.8 % (24.0-44.0); MEAN CORPUSCULAR HEMOGLOBIN 31.9 pg (27.0-33.0); MEAN CORPUSCULAR VOLUME 96.7 fl (80.0-96.0); MONO % 10.5 % (2.0-8.0); NEUTROPHILS # 6.5 10^3/uL (1.5-8.5); NEUTROPHILS % 70.3 % (36.0-66.0); PLATELET COUNT, AUTOMATED 265 10^3/uL (150-450); RED BLOOD COUNT 4.57 10^6/uL (4.30-6.10); WHITE BLOOD COUNT 9.2 10^3/uL (4.0-10.0)
[2023-05-26] MEDS ORDERED: LORazepam 2 MG/ML 1ML VIAL IV PRN (13:05)
[2023-05-26 13:15] LABS: ALBUMIN 4.2 G/DL (3.2-5.2); ALKALINE PHOSPHATASE 101 U/L (46-116); ALT/SGPT 97 U/L (7.0-40); AST/SGOT 70 U/L (<34); BILIRUBIN,DIRECT 0.2 MG/DL (<0.4); BILIRUBIN,TOTAL 0.8 MG/DL (0.3-1.2); BLOOD UREA NITROGEN 12 MG/DL (9-23); CALCIUM LEVEL 10.1 MG/DL (8.5-10.1); CARBON DIOXIDE LEVEL 12 MMOL/L (20-31); CHLORIDE LEVEL 96 MMOL/L (98-107); CK-MB VALUE MASS < 1.0 NG/ML (<3.6); CREATININE FOR GFR 1.06 MG/DL (0.70-1.30); GLOMERULAR FILTRATION RATE > 60.0 (>60); GLUCOSE, FASTING 103 MG/DL (60-100); PHOSPHORUS LEVEL 2.9 MG/DL (2.5-4.9); POTASSIUM SERUM 4.8 MMOL/L (3.5-5.1); SODIUM LEVEL 136 MMOL/L (136-145); TOTAL PROTEIN 8.4 G/DL (5.7-8.2)
[2023-05-26] MEDS: levETIRAcetam INJection 1,000 MG in D5W 100 ML IV ONE (13:15)
[2023-05-26 13:27] LABS: CPK CREATINE PHOSPHOKINASE 374 U/L (46-171); MB/CK RELATIVE INDEX 0.26 (< OR =4)
[2023-05-26] MEDS: NS 1,000 ML IV ONE (13:35)
[2023-05-26 15:45] VITALS: BP 118/79; TEMP 98.3; O2SAT 96
== END 2023-05-26 15:53 | disposition home or self-care (01) ==
LOC: M ED 12:00
DX: G40.909 Epilepsy, unspecified, not intractable, without status epilepticus (principal); F10.120 Alcohol abuse with intoxication, uncomplicated; Z91.148 Patient's other noncompliance with medication regimen for other reason; R00.0 Tachycardia, unspecified; Z79.899 Other long term (current) drug therapy
CPT/HCPCS: 80047; 80048; 80076; 80180; 82550; 82553; 83735; 84100; 85025; 93005; 94760; 96361; 96365; 99285; J1953

== ENCOUNTER 2023-06-24 16:40 | Inpatient (IN) | payer OTHER ==
[~2023-06-24] VITALS: Ht 167.6 cm; Wt 62.7 kg
[2023-06-24 17:19] LABS: ABG BASE EXCESS -18.7 (-2.0-2.0); ABG HCO3 8.5 MMOL/L (22.0-26.0); ABG O2 SATURATION 95.5 % (95.0-99.0); ABG PARTIAL PRESSURE CO2 25.1 mmHg (35.0-45.0); ABG PARTIAL PRESSURE O2 99.2 mmHg (75.0-100.0); ABG STANDARD HCO3 11.1 MMOL/L. (22.0-26.0); ABG TOTAL CO2 9.3 MMOL/L (22.0-29.0)
[2023-06-24 17:23] LABS: ABG pH (ARTERIAL) 7.148 UNITS (7.350-7.450)
[2023-06-24 17:56] LABS: IONIZED CALCIUM 4.3 MG/DL (4.5-5.3)
[2023-06-24 18:03] LABS: BASO # 0.1 10^3/uL (0.0-0.2); BASO % 0.3 % (0.0-1.0); EOS % 0.1 % (0.0-3.0); HEMATOCRIT 45.8 % (42.0-52.0); HEMOGLOBIN 14.7 g/dl (13.5-17.5); LYMPH # 0.4 10^3/uL (1.5-5.0); LYMPH % 1.9 % (24.0-44.0); MEAN CORPUSCULAR HEMOGLOBIN 32.4 pg (27.0-33.0); MEAN CORPUSCULAR HGB CONC 32.1 g/dl (32.0-36.5); MEAN CORPUSCULAR VOLUME 100.9 fl (80.0-96.0); MONO % 5.4 % (2.0-8.0); NEUTROPHILS # 16.5 10^3/uL (1.5-8.5); NEUTROPHILS % 91.5 % (36.0-66.0); PLATELET COUNT, AUTOMATED 246 10^3/uL (150-450); RED BLOOD COUNT 4.54 10^6/uL (4.30-6.10); WHITE BLOOD COUNT 18.1 10^3/uL (4.0-10.0)
[2023-06-24] MEDS: NS 1,000 ML IV ONE ×2 (18:08→19:27)
[2023-06-24] MEDS: levETIRAcetam INJection 1,000 MG in D5W 100 ML IV ONE (18:08)
[2023-06-24] MEDS ORDERED: LORazepam 2 MG/ML 1ML VIAL As Ordered ONE (18:13)
[2023-06-24] MEDS: LORazepam 2 MG/ML 1ML VIAL IV STA (18:16)
[2023-06-24 18:34] LABS: ALBUMIN 5.1 G/DL (3.2-5.2); ALKALINE PHOSPHATASE 127 U/L (46-116); ALT/SGPT 152 U/L (7.0-40); AST/SGOT 116 U/L (<34); BILIRUBIN,DIRECT 0.2 MG/DL (<0.4); BILIRUBIN,TOTAL 0.8 MG/DL (0.3-1.2); BLOOD UREA NITROGEN 10 MG/DL (9-23); CALCIUM LEVEL 10.4 MG/DL (8.5-10.1); CARBON DIOXIDE LEVEL < 10.0 MMOL/L (20-31); CHLORIDE LEVEL 97 MMOL/L (98-107); ETHYL ALCOHOL (ETHANOL) 0.003 % (0.000-0.010); GLOMERULAR FILTRATION RATE > 60.0 (>60); GLUCOSE, FASTING 196 MG/DL (60-100); MAGNESIUM LEVEL 3.3 MG/DL (1.8-2.4); PHOSPHORUS LEVEL 4.8 MG/DL (2.5-4.9); POTASSIUM SERUM 5.3 MMOL/L (3.5-5.1); SODIUM LEVEL 135 MMOL/L (136-145); TOTAL PROTEIN 9.3 G/DL (5.7-8.2)
[2023-06-24 20:52] LABS: HEPATITIS B SURFACE ANTIGEN NEGATIVE (NEGATIVE)
[2023-06-24] MEDS ORDERED: ACETAMINOPHEN TAB 650MG DOSE (2X325MG) PO PRN (21:10)
[2023-06-24] MEDS ORDERED: LORazepam 2 MG TAB PO PRN (21:10)
[2023-06-24 21:13] LABS: HEPATITIS C VIRUS ABY INDEX < 0.02 INDEX (<0.8)
[2023-06-24 21:14] LABS: HEPATITIS B CORE ANTIBODY IGM NEGATIVE (NEGATIVE)
[2023-06-24] MEDS ORDERED: HOME MED LIST COMPLETE! XX SCH (21:40)
[2023-06-24 22:16] LABS: VENOUS BASE EXCESS -4.6 (-2.0-2.0); VENOUS HCO3 21.9 MMOL/L (23.0-27.0); VENOUS O2 SATURATION 67.3 % (60.0-80.0); VENOUS PARTIAL PRESSURE CO2 45.6 mmHg (38.0-50.0); VENOUS PARTIAL PRESSURE O2 37.5 mmHg (30.0-50.0); VENOUS TOTAL CO2 23.3 MMOL/L (24.0-28.0)
[2023-06-24] MEDS: NS 1,000 ML IV SCH (22:18)
[2023-06-24] MEDS: DOCUSATE SODIUM 100MG CAPSULE PO SCH (22:18)
[2023-06-24] MEDS: levETIRAcetam 250MG TABLET (KEPPRA) PO SCH (22:18)
[2023-06-24] MEDS: THIAMINE 100 MG TAB PO SCH (22:18)
[2023-06-24 22:38] LABS: INR 1.02; PARTIAL THROMBOPLASTIN TIME 27.2 SECONDS (24.8-34.2); PROTHROMBIN TIME 13.1 SECONDS (12.5-14.5)
[2023-06-24 22:46] LABS: CPK CREATINE PHOSPHOKINASE 284 U/L (46-171)
[2023-06-24 23:07] LABS: BARBITURATES URINE NEGATIVE (NEGATIVE); BENZODIAZEPINES URINE NEGATIVE (NEGATIVE); COCAINE METABOLITE URINE NEGATIVE (NEGATIVE)
[2023-06-24 23:08] LABS: CANNABINOIDS URINE NEGATIVE (NEGATIVE); METHADONE URINE NEGATIVE (NEGATIVE); OPIATES URINE NEGATIVE (NEGATIVE); PHENCYCLIDINE URINE NEGATIVE (NEGATIVE)
[2023-06-24 23:28] VITALS: BP 148/92; TEMP 97.9; O2SAT 100
[2023-06-24 23:41] LABS: ALBUMIN 4.1 G/DL (3.2-5.2); ALKALINE PHOSPHATASE 102 U/L (46-116); ALT/SGPT 118 U/L (7.0-40); AST/SGOT 79 U/L (<34); BILIRUBIN,TOTAL 1.1 MG/DL (0.3-1.2); BLOOD UREA NITROGEN 9 MG/DL (9-23); CALCIUM LEVEL 8.4 MG/DL (8.5-10.1); CARBON DIOXIDE LEVEL 22 MMOL/L (20-31); CHLORIDE LEVEL 104 MMOL/L (98-107); CREATININE FOR GFR 1.25 MG/DL (0.70-1.30); GLOMERULAR FILTRATION RATE > 60.0 (>60); GLUCOSE, FASTING 109 MG/DL (60-100); MAGNESIUM LEVEL 2.9 MG/DL (1.8-2.4); POTASSIUM SERUM 4.1 MMOL/L (3.5-5.1); SODIUM LEVEL 137 MMOL/L (136-145); TOTAL PROTEIN 7.8 G/DL (5.7-8.2)
[2023-06-24] MEDS: LACTULOSE 20GM/30ML SYRUP UDC PO SCH (23:44)
[2023-06-24 23:46] LABS: AMPHETAMINES LEVEL URINE NEGATIVE (NEGATIVE)
[2023-06-24 23:49] VITALS: BP 148/92
[2023-06-24 23:57] LABS: PROCALCITONIN 0.42 ng/ml
[2023-06-25] VITALS (11 sets, daily range): BP systolic 121–134; BP diastolic 62–78; TEMP 98–99.3; O2SAT 95–100
[2023-06-25] MEDS: CEFEPIME HCL 2 GM in D5W 50 ML IV SCH (01:39)
[2023-06-25 05:49] LABS: VENOUS BASE EXCESS -3.1 (-2.0-2.0); VENOUS HCO3 21.2 MMOL/L (23.0-27.0); VENOUS O2 SATURATION 98.4 % (60.0-80.0); VENOUS PARTIAL PRESSURE CO2 35.6 mmHg (38.0-50.0); VENOUS PARTIAL PRESSURE O2 134.6 mmHg (30.0-50.0); VENOUS PH 7.392 UNITS (7.330-7.430); VENOUS STANDARD HCO3 21.9 MMOL/L; VENOUS TOTAL CO2 22.3 MMOL/L (24.0-28.0)
[2023-06-25 06:13] LABS: HEMATOCRIT 35.7 % (42.0-52.0); MEAN CORPUSCULAR HEMOGLOBIN 32.5 pg (27.0-33.0); MEAN CORPUSCULAR HGB CONC 33.6 g/dl (32.0-36.5); MEAN CORPUSCULAR VOLUME 96.7 fl (80.0-96.0); PLATELET COUNT, AUTOMATED 191 10^3/uL (150-450); RED BLOOD COUNT 3.69 10^6/uL (4.30-6.10); WHITE BLOOD COUNT 10.9 10^3/uL (4.0-10.0)
[2023-06-25 06:19] LABS: ALBUMIN 3.6 G/DL (3.2-5.2); ALKALINE PHOSPHATASE 84 U/L (46-116); ALT/SGPT 95 U/L (7.0-40); AST/SGOT 56 U/L (<34); BILIRUBIN,TOTAL 1.5 MG/DL (0.3-1.2); BLOOD UREA NITROGEN 9 MG/DL (9-23); CALCIUM LEVEL 8.4 MG/DL (8.5-10.1); CARBON DIOXIDE LEVEL 22 MMOL/L (20-31); CHLORIDE LEVEL 107 MMOL/L (98-107); CREATININE FOR GFR 1.13 MG/DL (0.70-1.30); GLOMERULAR FILTRATION RATE > 60.0 (>60); GLUCOSE, FASTING 75 MG/DL (60-100); MAGNESIUM LEVEL 2.7 MG/DL (1.8-2.4); POTASSIUM SERUM 3.9 MMOL/L (3.5-5.1); SODIUM LEVEL 140 MMOL/L (136-145); TOTAL PROTEIN 6.9 G/DL (5.7-8.2)
[2023-06-25] MEDS: MULTIVITAMINS/MINERALS THERAP 1 TAB PO SCH (09:24)
[2023-06-25] MEDS: FOLIC ACID 1MG TAB PO SCH (09:24)
[2023-06-26 06:33] LABS: HEMATOCRIT 37.8 % (42.0-52.0); HEMOGLOBIN 12.6 g/dl (13.5-17.5); MEAN CORPUSCULAR HEMOGLOBIN 32.1 pg (27.0-33.0); MEAN CORPUSCULAR HGB CONC 33.3 g/dl (32.0-36.5); MEAN CORPUSCULAR VOLUME 96.2 fl (80.0-96.0); PLATELET COUNT, AUTOMATED 156 10^3/uL (150-450); RED BLOOD COUNT 3.93 10^6/uL (4.30-6.10); WHITE BLOOD COUNT 8.6 10^3/uL (4.0-10.0)
[2023-06-26 07:09] LABS: BLOOD UREA NITROGEN 6 MG/DL (9-23); CALCIUM LEVEL 9.2 MG/DL (8.5-10.1); CARBON DIOXIDE LEVEL 27 MMOL/L (20-31); CHLORIDE LEVEL 108 MMOL/L (98-107); GLOMERULAR FILTRATION RATE > 60.0 (>60); GLUCOSE, FASTING 72 MG/DL (60-100); POTASSIUM SERUM 4.9 MMOL/L (3.5-5.1); SODIUM LEVEL 143 MMOL/L (136-145)
[2023-06-26] MEDS ORDERED: FOLI1TAB11 PO (12:00)
[2023-06-26] MEDS ORDERED: KEPP250T5 PO (12:00)
[2023-06-26] MEDS ORDERED: THIA100TA PO (12:00)
== END 2023-06-26 14:16 | disposition home or self-care (01) | DRG 53 ==
LOC: M ED 16:40 → M ED INP 21:08 → M PCU 23:27 → M MSPAV 06-25 18:54
PROVIDERS: ADMIT Family Medicine; ATTEND Preventive Medicine Undersea and Hyperbaric Medicine
DX: G40.909 Epilepsy, unspecified, not intractable, without status epilepticus (principal); G93.41 Metabolic encephalopathy; K76.82 Hepatic encephalopathy; F10.10 Alcohol abuse, uncomplicated; K80.20 Calculus of gallbladder without cholecystitis without obstruction; R74.01 Elevation of levels of liver transaminase levels; Z79.899 Other long term (current) drug therapy; Z87.820 Personal history of traumatic brain injury

== ENCOUNTER 2023-07-15 07:11 | Inpatient (IN) | payer MEDICAID, OTHER ==
[~2023-07-15] VITALS: Ht 167.6 cm; Wt 68.1 kg
[~2023-07-15 07:11] MED LIST changes: +FOLI1TAB11 PO; +KEPP250T5 PO; +THIA100TA PO
[2023-07-15] MEDS ORDERED: LEVE10003 (07:44)
[2023-07-15 08:32] LABS: BASO % 0.5 % (0.0-1.0); EOS % 0.5 % (0.0-3.0); HEMATOCRIT 42.3 % (42.0-52.0); HEMOGLOBIN 14.6 g/dl (13.5-17.5); LYMPH # 0.8 10^3/uL (1.5-5.0); LYMPH % 13.7 % (24.0-44.0); MEAN CORPUSCULAR HEMOGLOBIN 32.2 pg (27.0-33.0); MEAN CORPUSCULAR HGB CONC 34.5 g/dl (32.0-36.5); MEAN CORPUSCULAR VOLUME 93.4 fl (80.0-96.0); MONO # 0.7 10^3/uL (0.0-0.8); MONO % 11.3 % (2.0-8.0); NEUTROPHILS # 4.3 10^3/uL (1.5-8.5); NEUTROPHILS % 73.8 % (36.0-66.0); PLATELET COUNT, AUTOMATED 122 10^3/uL (150-450); RED BLOOD COUNT 4.53 10^6/uL (4.30-6.10); WHITE BLOOD COUNT 5.9 10^3/uL (4.0-10.0)
[2023-07-15 08:58] LABS: AMPHETAMINES LEVEL URINE NEGATIVE (NEGATIVE); BENZODIAZEPINES URINE NEGATIVE (NEGATIVE)
[2023-07-15 08:59] LABS: BARBITURATES URINE NEGATIVE (NEGATIVE); CANNABINOIDS URINE NEGATIVE (NEGATIVE); COCAINE METABOLITE URINE NEGATIVE (NEGATIVE); METHADONE URINE NEGATIVE (NEGATIVE); OPIATES URINE NEGATIVE (NEGATIVE); PHENCYCLIDINE URINE NEGATIVE (NEGATIVE)
[2023-07-15] MEDS: NICOTINE 14 MG/24 HR TRANSDERMAL TD SCH (09:00)
[2023-07-15 09:01] LABS: ETHYL ALCOHOL (ETHANOL) < 0.003 % (0.000-0.010)
[2023-07-15 09:02] LABS: ALBUMIN 4.2 G/DL (3.2-5.2); ALKALINE PHOSPHATASE 101 U/L (46-116); ALT/SGPT 141 U/L (7.0-40); AST/SGOT 202 U/L (<34); BILIRUBIN,DIRECT 0.3 MG/DL (<0.4); BILIRUBIN,TOTAL 1.2 MG/DL (0.3-1.2); BLOOD UREA NITROGEN 6 MG/DL (9-23); CALCIUM LEVEL 9.7 MG/DL (8.5-10.1); CARBON DIOXIDE LEVEL 23 MMOL/L (20-31); CHLORIDE LEVEL 104 MMOL/L (98-107); CREATININE FOR GFR 0.77 MG/DL (0.70-1.30); GLOMERULAR FILTRATION RATE > 60.0 (>60); GLUCOSE, FASTING 116 MG/DL (60-100); POTASSIUM SERUM 3.9 MMOL/L (3.5-5.1); SALICYLATE LEVEL < 3.0 MG/DL (<30); SODIUM LEVEL 139 MMOL/L (136-145); TOTAL PROTEIN 8.1 G/DL (5.7-8.2)
[2023-07-15 09:04] LABS: THYROID STIMULATING HORMONE 1.514 uIU/ML (0.55-4.78)
[2023-07-15] MEDS ORDERED: ISOVUE-370 76% 100ML VIAL As Ordered ONE (09:58)
[2023-07-15] MEDS: diphenhydrAMINE 50MG/ML VIAL IM ONE (13:23)
[2023-07-15] MEDS: HALOPERIDOL LACTATE 5MG/ML VIAL IM ONE (13:23)
[2023-07-15] MEDS: LORazepam 2 MG/ML 1ML VIAL IM ONE (13:24)
[2023-07-15] MEDS: levETIRAcetam 250MG TABLET (KEPPRA) PO ONE (13:39)
[2023-07-15] MEDS ORDERED: LORazepam 1 MG TAB PO PRN (15:05)
[2023-07-15] MEDS ORDERED: traZODone 50 MG TAB PO PRN (15:05)
[2023-07-15] MEDS ORDERED: MOM 30ML SUSPENSION UDC PO PRN (15:05)
[2023-07-15] MEDS ORDERED: MAALOX 30 ML SUSP *UDC PO PRN (15:05)
[2023-07-15] MEDS ORDERED: IBUPROFEN 400MG TAB PO PRN (15:05)
[2023-07-15] MEDS ORDERED: ACETAMINOPHEN TAB 650MG DOSE (2X325MG) PO PRN (15:05)
[2023-07-15] MEDS ORDERED: diphenhydrAMINE 25MG CAP PO PRN (15:05)
[2023-07-15 18:33] VITALS: BP 113/73; TEMP 98.2; O2SAT 96
[2023-07-15] MEDS ORDERED: levETIRAcetam 250MG TABLET (KEPPRA) PO SCH (21:00)
[2023-07-15] MEDS ORDERED: KEPP10002 PO (21:35)
[2023-07-15] MEDS ORDERED: FOLI1TAB11 PO (21:35)
[2023-07-15] MEDS ORDERED: HOME MED LIST COMPLETE! XX SCH (21:35)
[2023-07-15] MEDS: levETIRAcetam 250MG TABLET (KEPPRA) PO SCH (21:38)
[2023-07-15] MEDS: THIAMINE 100 MG TAB PO SCH (21:38)
[2023-07-16 06:52] VITALS: BP 144/82; TEMP 97; O2SAT 99
[2023-07-16] MEDS ORDERED: LORazepam 2 MG TAB PO PRN (12:35)
[2023-07-16 12:50] VITALS: BP 127/83
[2023-07-16 14:29] VITALS: BP 127/83; TEMP 98; O2SAT 98
[2023-07-16] MEDS: MULTIVITAMINS/MINERALS THERAP 1 TAB PO SCH (14:45)
[2023-07-16] MEDS: FOLIC ACID 1MG TAB PO SCH (14:45)
[2023-07-16 16:30] VITALS: BP 122/82; TEMP 96.7; O2SAT 100
[2023-07-16] MEDS ORDERED: THIAMINE 100 MG TAB PO SCH (21:00)
[2023-07-16 22:00] VITALS: BP 111/66
[2023-07-17 06:23] VITALS: BP 101/62; TEMP 97.9; O2SAT 100
[2023-07-17 06:31] VITALS: BP 101/62
[2023-07-17 16:06] VITALS: BP 142/60; TEMP 96.4; O2SAT 100
[2023-07-17 21:45] VITALS: BP 133/78
[2023-07-18 06:16] VITALS: BP 112/66
[2023-07-18 06:19] VITALS: BP 112/66; TEMP 98.4; O2SAT 96
[2023-07-18 14:00] VITALS: BP 120/78
[2023-07-18 18:55] VITALS: BP 120/78; TEMP 97.7; O2SAT 98
[2023-07-18 22:30] VITALS: BP 108/54
[2023-07-19 05:46] VITALS: BP 112/65; TEMP 98.5; O2SAT 100
== END 2023-07-19 11:27 | disposition home or self-care (01) | DRG 751 ==
LOC: M ED 07:11 → UNDOADMIN 15:01 → M ED INP 15:01 → M PSY 17:22
PROVIDERS: ADMIT Student in an Organized Health Care Education/Training Program; ATTEND Student in an Organized Health Care Education/Training Program
DX: F29 Unspecified psychosis not due to a substance or known physiological condition (principal); G40.909 Epilepsy, unspecified, not intractable, without status epilepticus; F10.10 Alcohol abuse, uncomplicated; F17.210 Nicotine dependence, cigarettes, uncomplicated; Z79.899 Other long term (current) drug therapy; Z87.820 Personal history of traumatic brain injury

== ENCOUNTER 2023-10-22 12:07 | Inpatient (IN) | payer MEDICAID, OTHER ==
[~2023-10-22] VITALS: Ht 167.6 cm; Wt 63.6 kg
[2023-10-22] MEDS: FOLIC ACID 1MG TAB PO SCH (09:00)
[~2023-10-22 12:07] MED LIST changes: +KEPP10002 PO; +LEVE10003
[2023-10-22 12:44] LABS: VENOUS BASE EXCESS -14.6 (-2.0-2.0); VENOUS HCO3 11.8 MMOL/L (23.0-27.0); VENOUS O2 SATURATION 96.7 % (60.0-80.0); VENOUS PARTIAL PRESSURE CO2 30.1 mmHg (38.0-50.0); VENOUS PARTIAL PRESSURE O2 99.7 mmHg (30.0-50.0); VENOUS STANDARD HCO3 13.6 MMOL/L; VENOUS TOTAL CO2 12.7 MMOL/L (24.0-28.0)
[2023-10-22 12:45] LABS: BASO # 0.1 10^3/uL (0.0-0.2); BASO % 0.4 % (0.0-1.0); EOS # 0.1 10^3/uL (0.0-0.5); EOS % 0.3 % (0.0-3.0); HEMATOCRIT 46.5 % (42.0-52.0); HEMOGLOBIN 15.3 g/dl (13.5-17.5); LYMPH # 0.8 10^3/uL (1.5-5.0); LYMPH % 5.5 % (24.0-44.0); MEAN CORPUSCULAR HEMOGLOBIN 32.6 pg (27.0-33.0); MEAN CORPUSCULAR HGB CONC 32.9 g/dl (32.0-36.5); MEAN CORPUSCULAR VOLUME 98.9 fl (80.0-96.0); MONO # 0.8 10^3/uL (0.0-0.8); MONO % 5.1 % (2.0-8.0); NEUTROPHILS # 13.2 10^3/uL (1.5-8.5); NEUTROPHILS % 88.2 % (36.0-66.0); PLATELET COUNT, AUTOMATED 177 10^3/uL (150-450)
[2023-10-22] MEDS: NS 500 ML IV ONE (12:52)
[2023-10-22] MEDS: levETIRAcetam INJection 1,000 MG in D5W 100 ML IV ONE (12:53)
[2023-10-22] MEDS ORDERED: LORazepam 2 MG/ML 1ML VIAL As Ordered ONE (13:08)
[2023-10-22] MEDS: LORazepam 2 MG/ML 1ML VIAL IV STA (13:21)
[2023-10-22 13:48] LABS: ETHYL ALCOHOL (ETHANOL) 0.008 % (0.000-0.010)
[2023-10-22 13:54] LABS: ALBUMIN 4.6 G/DL (3.2-5.2); ALKALINE PHOSPHATASE 109 U/L (46-116); ALT/SGPT 101 U/L (7.0-40); AST/SGOT 121 U/L (<34); BILIRUBIN,DIRECT 0.3 MG/DL (<0.4); BLOOD UREA NITROGEN 7 MG/DL (9-23); CALCIUM LEVEL 10.5 MG/DL (8.5-10.1); CARBON DIOXIDE LEVEL 12 MMOL/L (20-31); CHLORIDE LEVEL 102 MMOL/L (98-107); CREATININE FOR GFR 1.17 MG/DL (0.70-1.30); GLOMERULAR FILTRATION RATE > 60.0 (>60); GLUCOSE, FASTING 170 MG/DL (60-100); MAGNESIUM LEVEL 2.7 MG/DL (1.8-2.4); POTASSIUM SERUM 3.9 MMOL/L (3.5-5.1); SODIUM LEVEL 143 MMOL/L (136-145)
[2023-10-22 13:59] LABS: AMPHETAMINES LEVEL URINE NEGATIVE (NEGATIVE); BARBITURATES URINE NEGATIVE (NEGATIVE); BENZODIAZEPINES URINE NEGATIVE (NEGATIVE); CANNABINOIDS URINE NEGATIVE (NEGATIVE); COCAINE METABOLITE URINE NEGATIVE (NEGATIVE); METHADONE URINE NEGATIVE (NEGATIVE); OPIATES URINE NEGATIVE (NEGATIVE); PHENCYCLIDINE URINE NEGATIVE (NEGATIVE)
[2023-10-22] MEDS: NS 1,000 ML IV SCH (14:25)
[2023-10-22] MEDS: PIPERACILLIN/TAZOBACTAM SOD 4.5 GM in D5W MINI-BAG PLUS 50 ML IV ONE (14:25)
[2023-10-22] MEDS ORDERED: LORazepam 2 MG TAB PO PRN (14:35)
[2023-10-22] MEDS ORDERED: LORazepam 1 MG TAB PO PRN (14:35)
[2023-10-22] MEDS ORDERED: HOME MED LIST COMPLETE! XX SCH (15:00)
[2023-10-22] MEDS ORDERED: LORazepam 2 MG/ML 1ML VIAL IV PRN (15:50)
[2023-10-22 15:55] LABS: PROCALCITONIN 0.08 ng/ml
[2023-10-22 16:05] VITALS: BP 127/75; TEMP 98; O2SAT 98
[2023-10-22 16:07] LABS: HEPATITIS B SURFACE ANTIGEN NEGATIVE (NEGATIVE)
[2023-10-22 16:28] LABS: HEPATITIS B CORE ANTIBODY IGM NEGATIVE (NEGATIVE); HEPATITIS C VIRUS ABY INDEX < 0.02 INDEX (<0.8)
[2023-10-22 19:14] LABS: BLOOD UREA NITROGEN 8 MG/DL (9-23); CALCIUM LEVEL 8.8 MG/DL (8.5-10.1); CARBON DIOXIDE LEVEL 27 MMOL/L (20-31); CHLORIDE LEVEL 105 MMOL/L (98-107); CREATININE FOR GFR 1.12 MG/DL (0.70-1.30); GLOMERULAR FILTRATION RATE > 60.0 (>60); GLUCOSE, FASTING 91 MG/DL (60-100); SODIUM LEVEL 139 MMOL/L (136-145)
[2023-10-22] MEDS: levETIRAcetam INJection 1,000 MG in D5W 100 ML IV SCH (20:54)
[2023-10-22 20:56] VITALS: BP 131/86; TEMP 99.3; O2SAT 100
[2023-10-22] MEDS: PIPERACILLIN/TAZOBACTAM SOD 3.375 GM in D5W MINI-BAG PLUS 50 ML IV SCH (21:40)
[2023-10-22] MEDS: THIAMINE 100 MG TAB PO SCH (21:40)
[2023-10-23] VITALS (7 sets, daily range): BP systolic 112–133; BP diastolic 67–85; TEMP 97–99; O2SAT 97–100
[2023-10-23 05:31] LABS: HEMATOCRIT 39.3 % (42.0-52.0); MEAN CORPUSCULAR HEMOGLOBIN 32.3 pg (27.0-33.0); MEAN CORPUSCULAR HGB CONC 33.1 g/dl (32.0-36.5); MEAN CORPUSCULAR VOLUME 97.8 fl (80.0-96.0); PLATELET COUNT, AUTOMATED 122 10^3/uL (150-450); RED BLOOD COUNT 4.02 10^6/uL (4.30-6.10); WHITE BLOOD COUNT 9.9 10^3/uL (4.0-10.0)
[2023-10-23 06:01] LABS: BLOOD UREA NITROGEN 6 MG/DL (9-23); CALCIUM LEVEL 9.1 MG/DL (8.5-10.1); CARBON DIOXIDE LEVEL 25 MMOL/L (20-31); CHLORIDE LEVEL 109 MMOL/L (98-107); CREATININE FOR GFR 1.02 MG/DL (0.70-1.30); GLOMERULAR FILTRATION RATE > 60.0 (>60); GLUCOSE, FASTING 60 MG/DL (60-100); POTASSIUM SERUM 3.6 MMOL/L (3.5-5.1); SODIUM LEVEL 142 MMOL/L (136-145)
[2023-10-23 08:27] LABS: ALBUMIN 3.5 G/DL (3.2-5.2); ALKALINE PHOSPHATASE 79 U/L (46-116); ALT/SGPT 65 U/L (7.0-40); AST/SGOT 55 U/L (<34); BILIRUBIN,TOTAL 1.7 MG/DL (0.3-1.2); MAGNESIUM LEVEL 2.4 MG/DL (1.8-2.4)
[2023-10-23 08:52] LABS: BASO % 0.2 % (0.0-1.0); EOS % 0.2 % (0.0-3.0); LYMPH # 0.9 10^3/uL (1.5-5.0); LYMPH % 9.1 % (24.0-44.0); MONO # 0.9 10^3/uL (0.0-0.8); MONO % 8.8 % (2.0-8.0); NEUTROPHILS # 8.3 10^3/uL (1.5-8.5); NEUTROPHILS % 81.4 % (36.0-66.0)
[2023-10-23] MEDS: levETIRAcetam INJection 500 MG in D5W MINI-BAG PLUS 100 ML IV SCH (09:00)
[2023-10-23] MEDS: carBAMazepine XR 200 MG TAB PO ONE (09:55)
[2023-10-23] MEDS: MULTIVITAMINS/MINERALS THERAP 1 TAB PO SCH (10:44)
[2023-10-23] MEDS: ENOXAPARIN 40MG/0.4ML SYRINGE (J1650 PER 10MG) SC SCH (10:44)
[2023-10-23] MEDS ORDERED: levETIRAcetam 250MG TABLET (KEPPRA) PO SCH (21:00)
[2023-10-23] MEDS: carBAMazepine XR 200 MG TAB PO SCH (21:55)
[2023-10-24] VITALS (7 sets, daily range): BP systolic 114–126; BP diastolic 62–82; TEMP 97.4–98.2; O2SAT 97–100
[2023-10-24 05:30] LABS: BASO % 0.4 % (0.0-1.0); EOS # 0.1 10^3/uL (0.0-0.5); EOS % 0.9 % (0.0-3.0); HEMATOCRIT 40.3 % (42.0-52.0); HEMOGLOBIN 13.4 g/dl (13.5-17.5); LYMPH # 1.7 10^3/uL (1.5-5.0); LYMPH % 22.2 % (24.0-44.0); MEAN CORPUSCULAR HEMOGLOBIN 32.4 pg (27.0-33.0); MEAN CORPUSCULAR HGB CONC 33.3 g/dl (32.0-36.5); MEAN CORPUSCULAR VOLUME 97.6 fl (80.0-96.0); MONO # 0.8 10^3/uL (0.0-0.8); MONO % 10.7 % (2.0-8.0); NEUTROPHILS % 65.4 % (36.0-66.0); PLATELET COUNT, AUTOMATED 112 10^3/uL (150-450); RED BLOOD COUNT 4.13 10^6/uL (4.30-6.10); WHITE BLOOD COUNT 7.6 10^3/uL (4.0-10.0)
[2023-10-24 05:48] LABS: ALBUMIN 3.5 G/DL (3.2-5.2); ALKALINE PHOSPHATASE 82 U/L (46-116); ALT/SGPT 52 U/L (7.0-40); AST/SGOT 33 U/L (<34); BILIRUBIN,TOTAL 1.1 MG/DL (0.3-1.2); BLOOD UREA NITROGEN < 5 MG/DL (9-23); CALCIUM LEVEL 9.5 MG/DL (8.5-10.1); CARBON DIOXIDE LEVEL 27 MMOL/L (20-31); CHLORIDE LEVEL 107 MMOL/L (98-107); CREATININE FOR GFR 0.83 MG/DL (0.70-1.30); GLOMERULAR FILTRATION RATE > 60.0 (>60); GLUCOSE, FASTING 76 MG/DL (60-100); POTASSIUM SERUM 3.5 MMOL/L (3.5-5.1); SODIUM LEVEL 140 MMOL/L (136-145); TOTAL PROTEIN 7.1 G/DL (5.7-8.2)
[2023-10-24] MEDS ORDERED: KEPP1TAB PO (10:42)
[2023-10-24] MEDS ORDERED: CARB20TAXR PO (10:42)
== END 2023-10-24 13:35 | disposition home or self-care (01) | DRG 53 ==
LOC: M ED 12:07 → EDBD 12:07 → M ED INP 14:34 → M PCU 15:52
PROVIDERS: ADMIT Internal Medicine; ATTEND Internal Medicine
DX: G40.909 Epilepsy, unspecified, not intractable, without status epilepticus (principal); E87.20 Acidosis, unspecified; R65.10 Systemic inflammatory response syndrome (SIRS) of non-infectious origin without acute organ dysfunction; E83.52 Hypercalcemia; F10.10 Alcohol abuse, uncomplicated; F39 Unspecified mood [affective] disorder; R74.01 Elevation of levels of liver transaminase levels; Z79.899 Other long term (current) drug therapy; Z87.820 Personal history of traumatic brain injury; Z91.148 Patient's other noncompliance with medication regimen for other reason

== ENCOUNTER 2023-12-02 14:56 | Emergency (ER) | payer MEDICAID, OTHER ==
[~2023-12-02 14:56] MED LIST changes: +CARB20TAXR PO
[2023-12-02 15:50] LABS: BASO % 0.6 % (0.0-1.0); EOS % 0.3 % (0.0-3.0); HEMATOCRIT 41.7 % (42.0-52.0); HEMOGLOBIN 13.8 g/dl (13.5-17.5); LYMPH # 0.4 10^3/uL (1.5-5.0); LYMPH % 5.6 % (24.0-44.0); MEAN CORPUSCULAR HEMOGLOBIN 32.8 pg (27.0-33.0); MEAN CORPUSCULAR HGB CONC 33.1 g/dl (32.0-36.5); MONO # 0.5 10^3/uL (0.0-0.8); MONO % 7.8 % (2.0-8.0); NEUTROPHILS # 5.9 10^3/uL (1.5-8.5); NEUTROPHILS % 85.3 % (36.0-66.0); PLATELET COUNT, AUTOMATED 153 10^3/uL (150-450); RED BLOOD COUNT 4.21 10^6/uL (4.30-6.10); WHITE BLOOD COUNT 6.9 10^3/uL (4.0-10.0)
[2023-12-02 16:18] LABS: ETHYL ALCOHOL (ETHANOL) 0.127 % (0.000-0.010)
[2023-12-02 16:20] LABS: ALBUMIN 4.2 G/DL (3.2-5.2); ALKALINE PHOSPHATASE 128 U/L (46-116); ALT/SGPT 33 U/L (7.0-40); AST/SGOT 40 U/L (<34); BILIRUBIN,DIRECT 0.2 MG/DL (<0.4); BILIRUBIN,TOTAL 0.5 MG/DL (0.3-1.2); BLOOD UREA NITROGEN 8 MG/DL (9-23); CALCIUM LEVEL 9.5 MG/DL (8.5-10.1); CARBON DIOXIDE LEVEL 17 MMOL/L (20-31); CHLORIDE LEVEL 98 MMOL/L (98-107); CREATININE FOR GFR 0.88 MG/DL (0.70-1.30); GLOMERULAR FILTRATION RATE > 60.0 (>60); GLUCOSE, FASTING 63 MG/DL (60-100); MAGNESIUM LEVEL 2.2 MG/DL (1.8-2.4); PHOSPHORUS LEVEL 3.4 MG/DL (2.5-4.9); POTASSIUM SERUM 3.9 MMOL/L (3.5-5.1); SODIUM LEVEL 136 MMOL/L (136-145); TOTAL PROTEIN 8.8 G/DL (5.7-8.2)
[2023-12-02] MEDS ORDERED: KEPP1TAB PO (16:31)
[2023-12-02] MEDS ORDERED: CARB20TAXR PO (16:31)
[2023-12-02] MEDS ORDERED: HOME MED LIST COMPLETE! XX SCH (16:35)
[2023-12-02] MEDS: NS 1,000 ML IV ONE (17:00)
[2023-12-02] MEDS: levETIRAcetam INJection 1,000 MG in D5W 100 ML IV STA (17:12)
[2023-12-02] MEDS: carBAMazepine 200MG TABLET PO STA (18:06)
[2023-12-02 21:27] LABS: AMPHETAMINES LEVEL URINE NEGATIVE (NEGATIVE); BARBITURATES URINE NEGATIVE (NEGATIVE); CANNABINOIDS URINE NEGATIVE (NEGATIVE); COCAINE METABOLITE URINE NEGATIVE (NEGATIVE); METHADONE URINE NEGATIVE (NEGATIVE); OPIATES URINE NEGATIVE (NEGATIVE); PHENCYCLIDINE URINE NEGATIVE (NEGATIVE)
[2023-12-02 21:28] LABS: BENZODIAZEPINES URINE NEGATIVE (NEGATIVE)
[2023-12-02 22:30] VITALS: BP 119/78; TEMP 98
[2023-12-02 22:31] VITALS: O2SAT 100
[2023-12-02] MEDS ORDERED: KEPP10002 PO (22:42)
== END 2023-12-02 22:52 | disposition home or self-care (01) ==
LOC: EDBD 14:56 → M ED 14:56
DX: G40.909 Epilepsy, unspecified, not intractable, without status epilepticus (principal); Z79.899 Other long term (current) drug therapy
CPT/HCPCS: 71045; 80048; 80076; 80156; 80177; 80307; 81001; 82077; 82140; 82330; 83605; 83735; 84100; 85025; 93005; 93041; 94760; 96365; 99285; J1953

== ENCOUNTER 2024-03-09 13:36 | Inpatient (IN) | payer OTHER, MEDICAID ==
[~2024-03-09] VITALS: Ht 167.6 cm; Wt 73.3 kg
[2024-03-09] MEDS: MULTIVITAMINS/MINERALS THERAP 1 TAB PO SCH (09:00)
[2024-03-09] MEDS: FOLIC ACID 1MG TAB PO SCH (09:00)
[2024-03-09] MEDS ORDERED: TEGR1TAB PO (14:05)
[2024-03-09] MEDS ORDERED: LORazepam 2 MG/ML 1ML VIAL As Ordered ONE (14:25)
[2024-03-09] MEDS: LORazepam 2 MG/ML 1ML VIAL IV STA (14:28)
[2024-03-09] MEDS ORDERED: levETIRAcetam INJection 1,000 MG in D5W 100 ML IV ONE (14:30)
[2024-03-09 14:52] LABS: BASO # 0.1 10^3/uL (0.0-0.2); BASO % 0.8 % (0.0-1.0); EOS # 0.1 10^3/uL (0.0-0.5); EOS % 0.7 % (0.0-3.0); HEMATOCRIT 46.2 % (42.0-52.0); HEMOGLOBIN 14.4 g/dl (13.5-17.5); LYMPH # 1.6 10^3/uL (1.5-5.0); MEAN CORPUSCULAR HEMOGLOBIN 32.9 pg (27.0-33.0); MEAN CORPUSCULAR HGB CONC 31.2 g/dl (32.0-36.5); MEAN CORPUSCULAR VOLUME 105.5 fl (80.0-96.0); MONO % 8.1 % (2.0-8.0); NEUTROPHILS # 9.2 10^3/uL (1.5-8.5); PLATELET COUNT, AUTOMATED 218 10^3/uL (150-450); RED BLOOD COUNT 4.38 10^6/uL (4.30-6.10); WHITE BLOOD COUNT 11.9 10^3/uL (4.0-10.0)
[2024-03-09] MEDS: levETIRAcetam INJection 1,000 MG in IV 1 EA IV ONE (15:00)
[2024-03-09] MEDS ORDERED: LEVETIRACETAM IV ONE (15:00)
[2024-03-09] MEDS ORDERED: LORazepam 2 MG TAB PO PRN ×3 (15:10→17:40)
[2024-03-09] MEDS: NS (Normal Saline) 0.9% 1,000 ML IV ONE ×5 (15:21→20:05)
[2024-03-09 15:22] LABS: ETHYL ALCOHOL (ETHANOL) 0.022 % (0.000-0.010)
[2024-03-09 15:30] LABS: OSMOLALITY SERUM 324 MOSM/KG (275-295)
[2024-03-09 15:35] LABS: ALBUMIN 4.5 G/DL (3.2-5.2); ALKALINE PHOSPHATASE 112 U/L (40-129); AST/SGOT 115 U/L (<34); BILIRUBIN,DIRECT 0.2 MG/DL (<0.4); BILIRUBIN,TOTAL 1.1 MG/DL (0.3-1.2); CALCIUM LEVEL 10.3 MG/DL (8.5-10.1); CHLORIDE LEVEL 100 MMOL/L (98-107); GLUCOSE, FASTING 102 MG/DL (60-100); SODIUM LEVEL 144 MMOL/L (136-145); THYROID STIMULATING HORMONE 1.611 uIU/ML (0.55-4.78); TOTAL PROTEIN 9.3 G/DL (5.7-8.2)
[2024-03-09 15:38] LABS: ALT/SGPT 57 U/L (7.0-40); BLOOD UREA NITROGEN 8 MG/DL (9-23); CARBON DIOXIDE LEVEL < 10.0 MMOL/L (20-31); CREATININE FOR GFR 0.92 MG/DL (0.70-1.30); GLOMERULAR FILTRATION RATE > 60.0 (>60); POTASSIUM SERUM 4.9 MMOL/L (3.5-5.1)
[2024-03-09 15:43] LABS: MAGNESIUM LEVEL 2.1 MG/DL (1.8-2.4)
[2024-03-09 15:52] LABS: AMPHETAMINES LEVEL URINE NEGATIVE (NEGATIVE); BARBITURATES URINE NEGATIVE (NEGATIVE); BENZODIAZEPINES URINE NEGATIVE (NEGATIVE); CANNABINOIDS URINE NEGATIVE (NEGATIVE); COCAINE METABOLITE URINE NEGATIVE (NEGATIVE); METHADONE URINE NEGATIVE (NEGATIVE); OPIATES URINE NEGATIVE (NEGATIVE); PHENCYCLIDINE URINE NEGATIVE (NEGATIVE)
[2024-03-09] MEDS ORDERED: THIAMINE 100 MG TAB PO SCH ×3 (16:00→21:00)
[2024-03-09] MEDS ORDERED: LEVE10003 PO (16:07)
[2024-03-09] MEDS ORDERED: HOME MED LIST COMPLETE! XX SCH (16:10)
[2024-03-09] MEDS: THIAMINE 200MG 2ML VIAL IM ONE (16:15)
[2024-03-09 16:24] LABS: VENOUS BASE EXCESS -6.5 (-2.0-2.0); VENOUS HCO3 19.5 MMOL/L (23.0-27.0); VENOUS PARTIAL PRESSURE CO2 40.7 mmHg (38.0-50.0); VENOUS PARTIAL PRESSURE O2 46.5 mmHg (30.0-50.0); VENOUS PH 7.298 UNITS (7.330-7.430); VENOUS STANDARD HCO3 18.7 MMOL/L; VENOUS TOTAL CO2 20.7 MMOL/L (24.0-28.0)
[2024-03-09 16:35] LABS: PROCALCITONIN 0.09 ng/ml
[2024-03-09] MEDS ORDERED: D5W/0.45% SODIUM CHLORIDE 1,000 ML IV SCH (17:35)
[2024-03-09] MEDS ORDERED: GLUCOSE 4 GM CHEW PO PRN (17:35)
[2024-03-09] MEDS ORDERED: GLUCAGON INJ 1MG VIAL SC PRN (17:35)
[2024-03-09] MEDS ORDERED: DEXTROSE 50% 50ML SYRINGE IV PRN (17:35)
[2024-03-09] MEDS: LACTULOSE 20GM/30ML SYRUP UDC PO SCH (18:00)
[2024-03-09 19:09] LABS: PROLACTIN 38.24 NG/ML (2.1-17.7)
[2024-03-09] MEDS ORDERED: LORazepam 2 MG/ML 1ML VIAL IV PRN (19:25)
[2024-03-09 20:32] LABS: HEMOGLOBIN A1c 5.1 % (4.0-6.0)
[2024-03-09 20:56] LABS: BLOOD UREA NITROGEN 7 MG/DL (9-23); CALCIUM LEVEL 7.9 MG/DL (8.5-10.1); CARBON DIOXIDE LEVEL 25 MMOL/L (20-31); CHLORIDE LEVEL 107 MMOL/L (98-107); CREATININE FOR GFR 0.84 MG/DL (0.70-1.30); GLOMERULAR FILTRATION RATE > 60.0 (>60); GLUCOSE, FASTING 76 MG/DL (60-100); POTASSIUM SERUM 4.3 MMOL/L (3.5-5.1); SODIUM LEVEL 142 MMOL/L (136-145)
[2024-03-09 20:57] LABS: ABG BASE EXCESS -4.1 (-2.0-2.0); ABG HCO3 19.9 MMOL/L (22.0-26.0); ABG O2 SATURATION 98.9 % (95.0-99.0); ABG PARTIAL PRESSURE CO2 33.4 mmHg (35.0-45.0); ABG PARTIAL PRESSURE O2 176.6 mmHg (75.0-100.0); ABG STANDARD HCO3 21.1 MMOL/L. (22.0-26.0); ABG pH (ARTERIAL) 7.394 UNITS (7.350-7.450)
[2024-03-09] MEDS: THIAMINE 100 MG TAB PO SCH (21:31)
[2024-03-09] MEDS: ENOXAPARIN 40MG/0.4ML SYRINGE (J1650 PER 10MG) SC ONE (21:32)
[2024-03-09 21:46] LABS: ACETONE/KETONE 1.45 MMOL/L (0.02-0.27)
[2024-03-09] MEDS: LACTULOSE 20GM/30ML SYRUP UDC PR ONE (22:00)
[2024-03-10] MEDS: levETIRAcetam INJection 1,000 MG in IV 1 EA IV SCH (03:55)
[2024-03-10 07:33] LABS: BASO % 0.5 % (0.0-1.0); EOS # 0.1 10^3/uL (0.0-0.5); EOS % 0.6 % (0.0-3.0); HEMATOCRIT 38.1 % (42.0-52.0); HEMOGLOBIN 12.7 g/dl (13.5-17.5); LYMPH % 12.4 % (24.0-44.0); MEAN CORPUSCULAR HEMOGLOBIN 32.6 pg (27.0-33.0); MEAN CORPUSCULAR HGB CONC 33.3 g/dl (32.0-36.5); MEAN CORPUSCULAR VOLUME 97.9 fl (80.0-96.0); MONO # 0.5 10^3/uL (0.0-0.8); MONO % 6.6 % (2.0-8.0); NEUTROPHILS # 6.4 10^3/uL (1.5-8.5); NEUTROPHILS % 79.5 % (36.0-66.0); PLATELET COUNT, AUTOMATED 153 10^3/uL (150-450); RED BLOOD COUNT 3.89 10^6/uL (4.30-6.10); WHITE BLOOD COUNT 8.1 10^3/uL (4.0-10.0)
[2024-03-10 07:59] LABS: BLOOD UREA NITROGEN 6 MG/DL (9-23); CARBON DIOXIDE LEVEL 24 MMOL/L (20-31); CHLORIDE LEVEL 106 MMOL/L (98-107); CREATININE FOR GFR 0.77 MG/DL (0.70-1.30); GLOMERULAR FILTRATION RATE > 60.0 (>60); GLUCOSE, FASTING 67 MG/DL (60-100); POTASSIUM SERUM 3.8 MMOL/L (3.5-5.1); SODIUM LEVEL 141 MMOL/L (136-145)
[2024-03-10] MEDS ORDERED: MULTIVITAMINS/MINERALS THERAP 1 TAB PO SCH (09:00)
[2024-03-10] MEDS ORDERED: FOLIC ACID 1MG TAB PO SCH (09:00)
[2024-03-10] MEDS: MULTIVITAMINS/MINERALS THERAP 1 TAB PO SCH (10:19)
[2024-03-10] MEDS: FOLIC ACID 1MG TAB PO SCH (10:20)
[2024-03-10] MEDS: levETIRAcetam 250MG TABLET (KEPPRA) PO SCH (12:00)
[2024-03-10 15:05] VITALS: BP 126/72; TEMP 97.9; O2SAT 99
[2024-03-10] MEDS ORDERED: ENOXAPARIN 40MG/0.4ML SYRINGE (J1650 PER 10MG) SC SCH (20:00)
== END 2024-03-10 15:14 | disposition home or self-care (01) | DRG 53 ==
LOC: EDBD 13:36 → M ED 13:36 → M ED INP 17:33
PROVIDERS: ADMIT General Practice; ATTEND Internal Medicine Nephrology
DX: G40.409 Other generalized epilepsy and epileptic syndromes, not intractable, without status epilepticus (principal); E87.20 Acidosis, unspecified; E83.52 Hypercalcemia; K76.82 Hepatic encephalopathy; F10.10 Alcohol abuse, uncomplicated; F39 Unspecified mood [affective] disorder; F17.200 Nicotine dependence, unspecified, uncomplicated; R74.01 Elevation of levels of liver transaminase levels; Z79.899 Other long term (current) drug therapy; F12.10 Cannabis abuse, uncomplicated; Z91.148 Patient's other noncompliance with medication regimen for other reason; Z87.820 Personal history of traumatic brain injury

== ENCOUNTER → 2024-12-16 | Outpatient (CLI) | payer MEDICAID ==
[~2024-12-16] MED LIST changes: +LEVE10003 PO; +TEGR1TAB PO
== END ==
LOC: M OUTALCOH 09:29
PROVIDERS: ATTEND Psychiatry & Neurology Psychiatry
DX: F10.20 Alcohol dependence, uncomplicated (principal)

== ENCOUNTER 2025-01-06 10:51 | Outpatient (RCR) | payer MEDICAID | END 2025-01-10 | LOC: M OUTALCOH 10:51 | PROVIDERS: ATTEND Psychiatry & Neurology Psychiatry | DX: F10.20 Alcohol dependence, uncomplicated (principal) ==

== ENCOUNTER 2025-01-15 10:54 | Emergency (ER) | payer MEDICAID, OTHER ==
[~2025-01-15] VITALS: Ht 165.1 cm; Wt 66.5 kg
[2025-01-15 11:40] LABS: PLATELET COUNT, AUTOMATED 153 10^3/uL (150-450)
[2025-01-15 12:04] LABS: ETHYL ALCOHOL (ETHANOL) < 0.003 % (0.000-0.010)
[2025-01-15 12:05] LABS: SALICYLATE LEVEL < 3.0 MG/DL (<30)
[2025-01-15 12:06] LABS: ALT/SGPT 35 U/L (7.0-40); AST/SGOT 54 U/L (<34); CALCIUM LEVEL 9.5 MG/DL (8.5-10.1); CARBON DIOXIDE LEVEL 22 MMOL/L (20-31); CHLORIDE LEVEL 97 MMOL/L (98-107); CREATININE FOR GFR 1.35 MG/DL (0.70-1.30); GLOMERULAR FILTRATION RATE 69.4 (>60); POTASSIUM SERUM 3.8 MMOL/L (3.5-5.1); SODIUM LEVEL 135 MMOL/L (136-145)
[2025-01-15 13:45] VITALS: BP 144/90; TEMP 97.8; O2SAT 100
[2025-01-15 14:48] LABS: AMPHETAMINES LEVEL URINE NEGATIVE (NEGATIVE); BARBITURATES URINE NEGATIVE (NEGATIVE); BENZODIAZEPINES URINE NEGATIVE (NEGATIVE); CANNABINOIDS URINE NEGATIVE (NEGATIVE); COCAINE METABOLITE URINE NEGATIVE (NEGATIVE); METHADONE URINE NEGATIVE (NEGATIVE); OPIATES URINE NEGATIVE (NEGATIVE); PHENCYCLIDINE URINE NEGATIVE (NEGATIVE)
[2025-01-16] MEDS ORDERED: CARB-115 PO (01:17)
[2025-01-16] MEDS ORDERED: LATA1DRO OU (01:17)
== END 2025-01-15 14:01 | disposition home or self-care (01) ==
LOC: M ED 10:54
DX: M54.50 Low back pain, unspecified (principal); G40.909 Epilepsy, unspecified, not intractable, without status epilepticus; F10.10 Alcohol abuse, uncomplicated; Z79.899 Other long term (current) drug therapy

== ENCOUNTER 2025-01-15 19:08 | Emergency (ER) | payer OTHER ==
[~2025-01-15] VITALS: Ht 167.6 cm; Wt 68.0 kg
[2025-01-15 20:15] LABS: PLATELET COUNT, AUTOMATED 150 10^3/uL (150-450)
[2025-01-15 20:37] LABS: AMPHETAMINES LEVEL URINE NEGATIVE (NEGATIVE); BARBITURATES URINE NEGATIVE (NEGATIVE); BENZODIAZEPINES URINE NEGATIVE (NEGATIVE); COCAINE METABOLITE URINE NEGATIVE (NEGATIVE); METHADONE URINE NEGATIVE (NEGATIVE); OPIATES URINE NEGATIVE (NEGATIVE); PHENCYCLIDINE URINE NEGATIVE (NEGATIVE)
[2025-01-15 20:38] LABS: CANNABINOIDS URINE NEGATIVE (NEGATIVE); ETHYL ALCOHOL (ETHANOL) 0.190 % (0.000-0.010)
[2025-01-15 20:40] LABS: CALCIUM LEVEL 9.3 MG/DL (8.5-10.1); CARBON DIOXIDE LEVEL 22 MMOL/L (20-31); CHLORIDE LEVEL 95 MMOL/L (98-107); CREATININE FOR GFR 1.09 MG/DL (0.70-1.30); GLOMERULAR FILTRATION RATE 89.7 (>60); POTASSIUM SERUM 3.6 MMOL/L (3.5-5.1); SALICYLATE LEVEL < 3.0 MG/DL (<30); SODIUM LEVEL 132 MMOL/L (136-145)
[2025-01-16] MEDS ORDERED: CARB-115 PO (01:17)
[2025-01-16] MEDS ORDERED: LATA1DRO OU (01:17)
[2025-01-16] MEDS ORDERED: HOME MED LIST COMPLETE! XX SCH (01:20)
[2025-01-16 06:21] VITALS: BP 134/86; TEMP 98.3; O2SAT 95
== END 2025-01-16 06:55 | disposition home or self-care (01) ==
LOC: M ED 19:08
DX: F10.120 Alcohol abuse with intoxication, uncomplicated (principal); G40.909 Epilepsy, unspecified, not intractable, without status epilepticus; F32.A Depression, unspecified; F41.9 Anxiety disorder, unspecified; F17.210 Nicotine dependence, cigarettes, uncomplicated; F12.10 Cannabis abuse, uncomplicated; Z79.899 Other long term (current) drug therapy

== ENCOUNTER → 2025-02-10 | Outpatient (RCR) | payer MEDICAID ==
[~2025-02-10] MED LIST changes: +CARB-115 PO; +LATA1DRO OU
== END ==
LOC: M OUTALCOH 01-11 08:40
PROVIDERS: ATTEND Psychiatry & Neurology Psychiatry
DX: F10.20 Alcohol dependence, uncomplicated (principal)